=== PATIENT | female | born 1990 | race Caucasian/White ===

== ENCOUNTER 2018-02-22 07:54 | Emergency (ER) | payer MEDICAID, SELFPAY ==
[2018-02-22 07:55] VITALS: BP 117/67; PULSE 102; RESP 18; TEMP 37; O2SAT 98; BMI 19.9
--- NOTE | 2018-02-22 08:09 | ED.VISSUMM ---
- ER Visit Summary Date of Service: 02/22/18 Chief Complaint: [] Vomiting for a few days then headache History of Present Illness: The patient is a 27 F [] for the last day she has had vomiting this been relatively intractable. Her father and boyfriend have similar symptoms they are improving her vomiting persisted she has history of migraine headaches and the vomiting has caused her to develop her typical migraine headache. She had a prior extensive evaluation for the migraine headaches because on occasion when she has headache she has seizure she has had brain scans other studies she has no history of brain tumor or brain aneurysm she is on no meds for seizures. She has had no fever no cough no chest pain abdominal pain shortness of breath no urinary symptoms infected normal bowel bladder habits or paresthesias headache is typical of her migraines Physical Examination: [] Resting in the bed her vital signs are normal she is in no distress she speaking full sentences HEENT exams unremarkable pupils are equal round reactive conjunctiva clear nose and throat are normal neck is very supple lungs are clear heart tones are normal abdomen soft nontender neurologic exam is negative for all oriented ?3 skin is normal Test Results: [] Emergency Department Course and Treatment: [] Time she assures me this headache is her typical migraine this began with vomiting her abdomen soft nontender she was exposed to family members who have similar illness screening labs treatment Patient's laboratory studies are all unremarkable on reevaluation she is feeling better she has no symptoms whatsoever she is feeling fine she wants to go home, she has not been able to provide urine sample Explained all the test results to her the need for her to follow-up with her family doctors at the exact etiology of the vomiting is unclear she has no UTI symptoms she understands all the above and will return for change in symptomatology and follow with her doctors Treatment Plan: [] Disposition: [] Stable Impression: [] Vomiting resolved headache resolved This note was generated with [employer]ation software. It may contain incorrect words, spelling, and punctuation that were not noted in review of the chart prior to signing ED Disposition - Plan for ED Patient: Chief Complaint: Headache
[2018-02-22 08:17] LABS: Absolute Lymphocyte Count 1.37 X10^3/ul (0.83-4.51); Absolute Neutrophil Count 2.6 X10^3/uL (2.0-7.7); Basophil# 0.02 X10^3/uL; Basophil% 0.5 % (0-1); Eosinophil# 0.03 X10^3/uL; Eosinophils% 0.7 % (0-5); Hematocrit 38.3 % (37-47); Hemoglobin 12.3 g/dl (12.0-15.0); Lymphocyte # 1.37 X10^3/ul (4.0); Lymphocyte % 31.3 % (19-41); Mean Corp Hgb Conc 32.1 g/gl (32-36); Mean Corpuscular Hgb 26.5 pg (27.0-32.0); Mean Corpuscular Volume 82.5 fL (81-99); Mean Platelet Vol. 10.1 fl (6.2-12.0); Monocyte# 0.39 X10^3/uL; Monocyte% 8.9 % (0-10); Neutrophil # 2.56 X10^3/uL (2.7-7.7); Neutrophil % 58.4 % (47-70); Platelet Count 365 K/mm3 (150-450); RBC Distribution Width CV 17.8 % (11.6-14.6); RBC Distribution Width SD 53.5 fl (35.1-43.9); Red Blood Count 4.64 M/mm3 (4.2-5.4); White Blood Count 4.4 K/mm3 (4.4-11.0)
[2018-02-22] MEDS: DiphenhydrAMINE 50 MG/ML Syringe 25 MG IV (08:17)
[2018-02-22] MEDS: proCHLORPERazine 10 MG/2 ML Vial IV (08:17)
[2018-02-22] MEDS: 0.9% Normal Saline 1,000 ML 999 ML IV (08:17)
[2018-02-22 08:20] LABS: POSITIVE COUNT NO; POSITIVE DIFFERENTIAL NO; POSITIVE MORPHOLOGY NO
[2018-02-22] MEDS: Morphine 4 MG/ML Syringe IV (08:22)
[2018-02-22 08:31] LABS: AST(SGOT) 15 U/L (15-37); Alanine Aminotransfer ALT/SGPT 20 U/L (13-56); Albumin, Serum 4.3 g/dL (3.2-5.0); Alkaline Phosphatase 60 U/L (45-117); Anion Gap 8 (5-15); BUN 11 mg/dL (7-18); BUN/Creat Ratio 11.9 RATIO (10-20); Bilirubin, Direct 0.18 mg/dL (0.00-0.30); Chloride 102 mmol/L (98-107); Creatinine, Serum 0.92 mg/dL (0.55-1.02); EST Glomerular Filtration Rate 78 mL/min (>60); Est Glom Filt Rate - Afr Amer 94 mL/min (>60); Estimated Creatinine Clearance 89.58 ml/min; Glucose 75 mg/dL (74-106); Lipase 176 U/L (73-393); Potassium 3.7 mmol/L (3.5-5.1); Protein, Total 8.3 g/dL (6.4-8.2); Sodium Level 138 mmol/L (136-145)
[2018-02-22 08:40] LABS: Pregnancy, Serum, hCG Quali. NEGATIVE Negative (0-9 Nonpreg)
--- NOTE | 2018-02-22 09:52 | ED.DEP ---
ED Disposition - Plan for ED Patient: Chief Complaint: Headache Instructions: ED Headache Migraine, ED Diet Vomiting Diarrhea Prescriptions: Ondansetron [Zofran Odt] 4 mg PO Q8H PRN PRN #10 tab PRN Reason: Nausea Referrals: Anika Gustafson PA [Primary Care Provider] -
[2018-02-22 10:30] VITALS: PULSE 92; RESP 17; O2SAT 98
[2018-02-22 10:32] VITALS: PULSE 92; RESP 17; O2SAT 98
== END 2018-02-22 10:33 | disposition home or self-care (01) ==
PROVIDERS: Emergency Provider Emergency Medicine; Family Provider Physician Assistant Medical; PCP Physician Assistant Medical
DX: R11.10 Vomiting, unspecified (principal); R51 Headache
CPT/HCPCS: 80048; 80076; 83690; 84703; 85025; 96374; 96375; 99283; J7030; A4216

== ENCOUNTER 2018-06-25 12:41 | Emergency (ER) | payer MEDICAID, SELFPAY ==
[2018-06-25 12:42] VITALS: BP 146/83; PULSE 88; RESP 16; TEMP 36.2; O2SAT 100; BMI 20.6
--- NOTE | 2018-06-25 13:00 | ED.DCSUM_ITS ---
- ER Visit Summary Date of Service: 06/25/18 Chief Complaint: Abdominal pain History of Present Illness: The patient is a 28 F with history of seizures, anxiety, ovarian cysts. Patient developed lower abdominal pain yesterday. She was seen by her doctor who did a pelvic exam. She states she was told that they were able to palpate some swelling and she was sent to the ER due to concern for possible ovarian cyst. At the [facility] last evening they did not have ultrasound available so CT scan was performed. This revealed a left ovarian cyst. Patient presents with continued pain today. She states pain was so severe last evening she did vomit. She states her temperature was up to 102 last night. Physical Examination: Blood pressure is 146/83, temperature 97.2, heart rate 88 , respiratory rate 16, pulse ox 100% on room air. Head neck examination is unremarkable. Heart is regular rate and rhythm. Lung sounds are clear. Abdomen is soft with tenderness across the lower abdomen. There is no guarding or rebound. Hypoactive bowel sounds are noted. Test Results: CBC was normal white count hemoglobin 11.1. Chemistry studies normal. Urinalysis normal. test negative. Pelvic ultrasound her tach reveals a 2.7 x 2.0 cm left ovarian cyst. Normal blood flow is noted to both ovaries. Emergency Department Course and Treatment: Patient was given morphine, Zofran, and IV fluids. On repeat evaluation she is resting comfortably. Patient has an allergy to Toradol, but will be encouraged to take anti-inflammatories as tolerated. She will be given prescription for [place]. She is to follow-up with her INTERNET SALES DIRECTOR next week. Treatment Plan: [] Disposition: Discharge Impression: Left ovarian cyst This note was generated with [employer] dictation software. It may contain incorrect words, spelling, and punctuation that were not noted in review of the chart prior to signing ED Disposition - Plan for ED Patient: Chief Complaint: Abd Pain Referrals: Anika Gustafson PA [Primary Care Provider] -
--- NOTE | 2018-06-25 13:13 | US_ITS ---
STUDY: ULTRASOUND OF THE FEMALE PELVIS - COMPLETE REASON FOR EXAM: Female, 28 years old. PELVIC PAIN COUPLE DAYS ESSURE COILS LMP: June 13, 2018 TECHNIQUE: Transvaginal TECHNICAL QUALITY: Adequate. COMPARISON: Prior CT report of the abdomen and pelvis September 07, 2017 was normal. FINDINGS: The uterus is anteverted and is tilted to the left side of the pelvis. The uterus measures 9.6 x 7.1 x 4.8 cm. There is minimal fluid in the endocervical canal. The endometrium measures 11.7 mm in thickness, and is heterogeneous (striated). There is no demonstrated endometrial mass. There is no demonstrated myometrial mass. The essure coils cannot be visualized transvaginally. CT exam may be helpful in this regard if indicated. The right ovary is visualized. The right ovary measures 4.3 x 2.6 x 1.9 cm. There is no right ovarian cyst or ovarian mass. There is no visualized right adnexal mass or complex lesion. There is normal arterial and normal venous vascularity. The left ovary is visualized. The left ovary measures 3.9 x 2.6 x 2.5 cm. Dominant follicle measures 2.7 x 2 x 2 cm. There is no visualized left adnexal mass or complex lesion. There is normal arterial and normal venous vascularity. There is no fluid in the cul-de-sac. Polycystic ovary disease: No. US/Transvaginal Non- IMPRESSION: Normal female pelvis. Dominant left ovarian follicle. Electronically Signed: Rossana Jensen MD at 17:26 EDT , Service support ,
[2018-06-25 14:01] LABS: Absolute Lymphocyte Count 1.16 X10^3/ul (0.83-4.51); Absolute Neutrophil Count 3.2 X10^3/uL (2.0-7.7); Basophil# 0.01 X10^3/uL; Basophil% 0.2 % (0-1); Eosinophil# 0.02 X10^3/uL; Eosinophils% 0.4 % (0-5); Hematocrit 35.3 % (37-47); Hemoglobin 11.1 g/dl (12.0-15.0); Lymphocyte # 1.16 X10^3/ul (4.0); Lymphocyte % 24.7 % (19-41); Mean Corp Hgb Conc 31.4 g/gl (32-36); Mean Corpuscular Hgb 26.8 pg (27.0-32.0); Mean Corpuscular Volume 85.3 fL (81-99); Mean Platelet Vol. 10.4 fl (6.2-12.0); Monocyte# 0.28 X10^3/uL; Neutrophil # 3.23 X10^3/uL (2.7-7.7); Neutrophil % 68.7 % (47-70); Platelet Count 301 K/mm3 (150-450); RBC Distribution Width CV 17.6 % (11.6-14.6); RBC Distribution Width SD 55.2 fl (35.1-43.9); Red Blood Count 4.14 M/mm3 (4.2-5.4); White Blood Count 4.7 K/mm3 (4.4-11.0)
[2018-06-25 14:02] LABS: POSITIVE COUNT NO; POSITIVE DIFFERENTIAL NO; POSITIVE MORPHOLOGY NO
[2018-06-25] MEDS: Ondansetron 4 MG/2 ML Vial IV (14:02)
[2018-06-25] MEDS: Morphine 2 MG/ML Syringe 4 MG IV (14:02)
[2018-06-25] MEDS: 0.9% Normal Saline 1,000 ML 150 ML IV (14:02)
[2018-06-25 14:06] LABS: Bacteria 0 SEEN /hpf (None Seen); Mucous, Urine 0 SEEN /hpf (<or=2+); Red Blood Cells-Urine 0 SEEN /hpf (0-5); White Blood Cells 0 SEEN /hpf (0-5)
[2018-06-25 14:15] LABS: Anion Gap 7 (5-15); BUN 10 mg/dL (7-18); BUN/Creat Ratio 13.7 RATIO (10-20); Calcium,Total 8.7 mg/dL (8.5-10.1); Chloride 107 mmol/L (98-107); Creatinine, Serum 0.73 mg/dL (0.55-1.02); EST Glomerular Filtration Rate 102 mL/min (>60); Est Glom Filt Rate - Afr Amer 123 mL/min (>60); Estimated Creatinine Clearance 115.68 ml/min; Glucose 105 mg/dL (74-106); Potassium 4.1 mmol/L (3.5-5.1); Sodium Level 139 mmol/L (136-145)
[2018-06-25 14:21] LABS: Color, Urine Yellow (Yellow); Glucose, Dipstick Normal (Normal); Ketone-Dipstick Negative (Negative); Leukocyte Esterase-Dipstick Negative /ul (Negative); Nitrite-Dipstick Negative (Negative); Occult Blood-Urine Negative /ul (Negative); Protein-Dipstick Negative (Negative); Urine Bilirubin Dipstick Negative (Negative); Urine Clarity Clear (Clear); Urine Urobilinogen Normal (Normal)
[2018-06-25 14:29] LABS: Internal QC Validated? YES +Cl - CLEAR BKGD; Pregnancy, Urine Negative Negative
[2018-06-25 14:42] VITALS: RESP 16
[2018-06-25 14:52] LABS: Squamous Epithelial Cells - UA 0-5 SEEN /hpf (5-10)
[2018-06-25] MEDS: Morphine 2 MG/ML Syringe IV (15:28)
[2018-06-25 16:00] VITALS: RESP 16
--- NOTE | 2018-06-25 17:09 | ED.DEP ---
ED Disposition - Plan for ED Patient: Disposition: Home or Assisted Living Chief Complaint: Abd Pain Instructions: ED Cyst Ovarian Prescriptions: Hydrocodone Bitart/Apap 5-325 [[place] 5MG-325MG] 1 tablet PO Q6H PRN PRN 3 Days #10 tablet PRN Reason: Pain Referrals: Anika Gustafson PA [Primary Care Provider] - Additional Instructions: Follow-up with STAFFING EXECUTIVE next week
--- NOTE | 2018-06-25 17:11 | DCINST.ED_ITS ---
ED Disposition - Plan for ED Patient: Disposition: Home or Assisted Living Chief Complaint: Abd Pain Instructions: ED Cyst Ovarian Prescriptions: Hydrocodone Bitart/Apap 5-325 [[place] 5MG-325MG] 1 tablet PO Q6H PRN PRN 3 Days # 10 tablet PRN Reason: Pain Referrals: Anika Gustafosn PA [Primary Care Provider] - Additional Instructions: Follow-up with ROOF SLATER next week
[2018-06-25 17:19] VITALS: BP 126/91; PULSE 97; RESP 16; O2SAT 100
--- NOTE | 2018-06-25 17:19 | ED.RN ---
REVIEWED D/C INSTRUCTIONS, FOLLOW UP CARE, PRESCRIPTION, AND S/S THAT WOULD WARRANT A RETURN TO THE ED WITH PT. PT VERBALIZED AN UNDERSTANDING AND DENIES FURTHER QUESTIONS FOR THIS RN. PT SKIN P/W/D, RESP EVEN AND UNLABORED, PT A&O X 3, NO DISTRESS NOTED. PT AMBULATED OUT OF ED, GAIT STEADY.
== END 2018-06-25 17:20 | disposition home or self-care (01) ==
PROVIDERS: Emergency Provider Emergency Medicine; Family Provider Physician Assistant Medical; PCP Physician Assistant Medical
DX: N83.202 Unspecified ovarian cyst, left side (principal); R50.9 Fever, unspecified; G40.909 Epilepsy, unspecified, not intractable, without status epilepticus; F41.9 Anxiety disorder, unspecified; Z90.49 Acquired absence of other specified parts of digestive tract; Z79.899 Other long term (current) drug therapy
CPT/HCPCS: 76830; 80048; 81001; 81025; 85025; 96361; 96374; 96375; 96376; 99285; J7030; J7040; A4216; J2405

== ENCOUNTER 2018-06-27 10:41 | Emergency (ER) | payer MEDICAID, SELFPAY ==
[2018-06-27 10:42] VITALS: BP 136/66; PULSE 92; RESP 17; TEMP 37; O2SAT 97; BMI 20.2
--- NOTE | 2018-06-27 10:52 | ED.DCSUM_ITS ---
- ER Visit Summary Date of Service: 06/27/18 Chief Complaint: Flank pain, dysuria, hematuria History of Present Illness: The patient is a 28 F presents to the emergency department left-sided flank pain. Patient was actually here 2 days ago. She was diagnosed with an ovarian cyst. States her pain totally resolved. She states over the past 24 hours, she has had worsening, intermittent pain that is been in her left flank. States last night, she began have some hematuria and dysuria. She also admits to some low-grade fever and chills. She was mildly nauseated but denies any vomiting. The pain does not radiate to her abdomen. She has had one prior kidney stone in the past. She has never required lithotripsy or stenting. The patient is otherwise healthy. Physical Examination: Vital signs reviewed General: Well-nourished, well-developed Head: Normocephalic, atraumatic Eyes: Pupils equal and reactive, extraocular muscles intact Neck, supple, no lymphadenopathy Heart: Regular rate and rhythm Respiratory: No distress, clear bilaterally Abdomen: Soft, nontender, nondistended, no peritoneal signs Back: Mild left CVA tenderness Extremities: Nontender, no edema, no cords Skin: Normal color no rash Neuro: Alert and oriented, no focal or lateralizing deficits Test Results: [] Emergency Department Course and Treatment: The patient presents with left-sided flank pain and fevers at home. Her abdomen is soft and nontender. IV was established. She was given IV fluids, analgesics, and antiemetics. She was totally pain-free. Screening labs are unremarkable. Urine does show evidence of infection. Urine culture was added. The patient is given IV Rocephin will be kept on Bactrim as an outpatient. At this time, I do feel that she is safe for outpatient therapy. She has had resolution of her pain. She has no evidence of sepsis. She is well-appearing and has no other comorbidities. The patient be discharged home. Treatment Plan: [] Disposition: Discharge Impression: Pyelonephritis This note was generated with [employer] dictation software. It may contain incorrect words, spelling, and punctuation that were not noted in review of the chart prior to signing ED Disposition - Plan for ED Patient: Chief Complaint: Flank Pain Instructions: ED Kidney Infec Female Prescriptions: Smz/Tmp Ds [Bactrim Ds] 1 tab PO BID #14 tab Referrals: Anika Gustafson PA [Primary Care Provider] -
[2018-06-27] MEDS: 0.9% Normal Saline 1,000 ML 1000 ML IV (11:01)
[2018-06-27] MEDS: Ondansetron 4 MG/2 ML Vial IV (11:01)
[2018-06-27] MEDS: Morphine 4 MG/ML Syringe IV (11:01)
[2018-06-27 11:05] LABS: Mucous, Urine 0 SEEN /hpf (<or=2+); Red Blood Cells-Urine 0 SEEN /hpf (0-5)
[2018-06-27 11:21] LABS: Anion Gap 7 (5-15); BUN 8 mg/dL (7-18); BUN/Creat Ratio 10.5 RATIO (10-20); Calcium,Total 8.6 mg/dL (8.5-10.1); Chloride 106 mmol/L (98-107); Creatinine, Serum 0.76 mg/dL (0.55-1.02); EST Glomerular Filtration Rate 97 mL/min (>60); Est Glom Filt Rate - Afr Amer 117 mL/min (>60); Estimated Creatinine Clearance 108.83 ml/min; Glucose 85 mg/dL (74-106); Potassium 3.9 mmol/L (3.5-5.1); Sodium Level 140 mmol/L (136-145)
[2018-06-27 11:27] LABS: Absolute Lymphocyte Count 1.34 X10^3/ul (0.83-4.51); Absolute Neutrophil Count 4.6 X10^3/uL (2.0-7.7); Basophil# 0.02 X10^3/uL; Basophil% 0.3 % (0-1); Eosinophil# 0.05 X10^3/uL; Eosinophils% 0.8 % (0-5); Hematocrit 37.7 % (37-47); Hemoglobin 12.2 g/dl (12.0-15.0); Lymphocyte # 1.34 X10^3/ul (4.0); Lymphocyte % 20.5 % (19-41); Mean Corp Hgb Conc 32.4 g/gl (32-36); Mean Corpuscular Hgb 27.5 pg (27.0-32.0); Mean Corpuscular Volume 84.9 fL (81-99); Mean Platelet Vol. 10.8 fl (6.2-12.0); Monocyte# 0.51 X10^3/uL; Monocyte% 7.8 % (0-10); Neutrophil # 4.61 X10^3/uL (2.7-7.7); Neutrophil % 70.4 % (47-70); Platelet Count 298 K/mm3 (150-450); RBC Distribution Width CV 17.4 % (11.6-14.6); Red Blood Count 4.44 M/mm3 (4.2-5.4); White Blood Count 6.5 K/mm3 (4.4-11.0)
[2018-06-27 11:28] LABS: POSITIVE COUNT NO; POSITIVE DIFFERENTIAL NO; POSITIVE MORPHOLOGY NO
[2018-06-27 11:33] LABS: Color, Urine Amber (Yellow); Glucose, Dipstick Normal (Normal); Ketone-Dipstick Negative (Negative); Leukocyte Esterase-Dipstick 500 /ul (Negative); Nitrite-Dipstick Positive (Negative); Occult Blood-Urine 10 /ul (Negative); Protein-Dipstick 15 mg/dl (Negative); Urine Clarity Clear (Clear); Urine Urobilinogen 8 mg/dl (Normal)
[2018-06-27 11:39] LABS: Urine Bilirubin Dipstick 6 mg/dL (Negative)
[2018-06-27 11:40] LABS: Bacteria 1+ /hpf (None Seen); Internal QC Validated? YES +Cl - CLEAR BKGD; Pregnancy, Urine Negative Negative; Squamous Epithelial Cells - UA 5-10 SEEN /hpf (5-10); White Blood Cells 25-50 SEEN /hpf (0-5)
[2018-06-27] MEDS: Ceftriaxone 1 GM/50 ML BAG IV (11:55)
[2018-06-27 12:39] VITALS: BP 126/76; PULSE 89; RESP 18; O2SAT 95
== END 2018-06-27 12:40 | disposition home or self-care (01) ==
LOC: ED 11:13
PROVIDERS: Emergency Provider Emergency Medicine; Family Provider Physician Assistant Medical; PCP Physician Assistant Medical
DX: N12 Tubulo-interstitial nephritis, not specified as acute or chronic (principal); Z87.442 Personal history of urinary calculi
CPT/HCPCS: 80048; 81001; 81025; 85025; 87086; 87088; 96361; 96365; 96374; 96375; 99285; J7030; A4216; J2405

== ENCOUNTER 2018-06-29 12:02 | Emergency (ER) | payer MEDICAID, SELFPAY ==
[2018-06-29 12:03] VITALS: BP 140/95; PULSE 74; RESP 16; TEMP 36.5; O2SAT 98; BMI 19.9
[2018-06-29] MEDS: 0.9% Normal Saline 1,000 ML 1000 ML IV (12:27)
[2018-06-29] MEDS: Ondansetron 4 MG/2 ML Vial IV (12:27)
[2018-06-29] MEDS: Morphine 4 MG/ML Syringe IV ×2 (12:27→14:33)
[2018-06-29 12:32] LABS: Absolute Lymphocyte Count 1.59 X10^3/ul (0.83-4.51); Absolute Neutrophil Count 2.6 X10^3/uL (2.0-7.7); Basophil# 0.01 X10^3/uL; Basophil% 0.2 % (0-1); Eosinophil# 0.04 X10^3/uL; Eosinophils% 0.9 % (0-5); Hematocrit 38.9 % (37-47); Hemoglobin 12.1 g/dl (12.0-15.0); Lymphocyte # 1.59 X10^3/ul (4.0); Lymphocyte % 34.5 % (19-41); Mean Corp Hgb Conc 31.1 g/gl (32-36); Mean Corpuscular Hgb 26.6 pg (27.0-32.0); Mean Corpuscular Volume 85.5 fL (81-99); Mean Platelet Vol. 9.9 fl (6.2-12.0); Monocyte# 0.36 X10^3/uL; Monocyte% 7.8 % (0-10); Neutrophil # 2.61 X10^3/uL (2.7-7.7); Neutrophil % 56.6 % (47-70); Platelet Count 280 K/mm3 (150-450); RBC Distribution Width CV 17.7 % (11.6-14.6); RBC Distribution Width SD 55.8 fl (35.1-43.9); Red Blood Count 4.55 M/mm3 (4.2-5.4); White Blood Count 4.6 K/mm3 (4.4-11.0)
[2018-06-29 12:33] LABS: POSITIVE COUNT NO; POSITIVE DIFFERENTIAL NO; POSITIVE MORPHOLOGY NO
[2018-06-29 12:35] LABS: Mucous, Urine 0 SEEN /hpf (<or=2+); Red Blood Cells-Urine 0 SEEN /hpf (0-5)
[2018-06-29 12:36] LABS: Color, Urine Amber (Yellow); Glucose, Dipstick Normal (Normal); Ketone-Dipstick Negative (Negative); Leukocyte Esterase-Dipstick 25 /ul (Negative); Nitrite-Dipstick Positive (Negative); Occult Blood-Urine Negative /ul (Negative); Protein-Dipstick Negative (Negative); Urine Clarity Sl. Cloudy (Clear); Urine Urobilinogen 4 mg/dl (Normal)
[2018-06-29 12:37] LABS: Urine Bilirubin Dipstick 3 mg/dL (Negative)
[2018-06-29 12:43] LABS: Bacteria 1+ /hpf (None Seen); Squamous Epithelial Cells - UA 5-10 SEEN /hpf (5-10); White Blood Cells 0-5 SEEN /hpf (0-5)
[2018-06-29 12:47] LABS: ALB/GLOB Ratio 1.3 RATIO (0.9-2.4); AST(SGOT) 20 U/L (15-37); Alanine Aminotransfer ALT/SGPT 22 U/L (13-56); Albumin, Serum 4.4 g/dL (3.2-5.0); Alkaline Phosphatase 50 U/L (45-117); Anion Gap 8 (5-15); BUN 9 mg/dL (7-18); BUN/Creat Ratio 11.5 RATIO (10-20); Calcium,Total 9.2 mg/dL (8.5-10.1); Chloride 102 mmol/L (98-107); Creatinine, Serum 0.79 mg/dL (0.55-1.02); EST Glomerular Filtration Rate 93 mL/min (>60); Est Glom Filt Rate - Afr Amer 113 mL/min (>60); Globulin 3.4 g/dL (2.2-4.2); Glucose 83 mg/dL (74-106); Potassium 3.6 mmol/L (3.5-5.1); Protein, Total 7.8 g/dL (6.4-8.2); Sodium Level 139 mmol/L (136-145)
--- NOTE | 2018-06-29 12:47 | CT_ITS ---
STUDY: CT ABDOMEN AND PELVIS WITHOUT CONTRAST REASON FOR EXAM: Female, 28 years old. Pelvic pain. Recent diagnosis of pyelonephritis. RADIATION DOSAGE (If Supplied By Facility): CTDIvol = ( 6.10 ) mGy, DLP = ( 333.82 ) mGycm TECHNIQUE: Transaxial images were obtained from the dome of the diaphragm to the symphysis pubis without oral contrast, and without intravenous contrast. Sagittal and coronal images were reconstructed. Individualized dose optimization techniques were used for this CT. COMPARISON: Comparison is made with prior examination dated September 07, 2017. FINDINGS: The visualized lung bases are unremarkable. The visualized portions of the heart are within normal limits. Normal liver. Normal gallbladder and extrahepatic biliary system. Normal spleen. Normal pancreas. Normal bilateral adrenal glands. Normal right kidney. Normal left kidney. There is a small hiatal hernia. Normal small intestine. Normal colon. There are surgical clips in the region of the appendix consistent with a prior appendectomy. Normal abdominal aorta. Normal inferior vena cava. Normal retroperitoneum. Normal urinary bladder. ESSURE device seen in both fallopian tubes. There is a 3.4 cm x 5.5 cm x 5.2 cm cyst in the left adnexa. Follicles are seen in the right ovary. Normal abdominal wall. Normal osseous structures. CT/Abdomen/Pelvis without Cont IMPRESSION: Left ovarian cyst. Electronically Signed: Yasir Nelson MD at 13:54 EDT Tel [phone], Service support ,
--- NOTE | 2018-06-29 13:45 | ED.RN ---
PT REQUESTING PAIN AND NAUSEA MEDICATION, DR. SHEA AWARE.
--- NOTE | 2018-06-29 13:52 | ED.VISSUMM ---
- ER Visit Summary Date of Service: 06/29/18 Chief Complaint: Left lower quadrant pain and flank pain History of Present Illness: The patient is a 28 F presents to the emergency department with left lower quadrant pain and flank pain. The patient was seen here about 4 days ago. At that time, she was diagnosed with likely ovarian cyst. She came back 2 days later with now flank pain and dysuria. Actually evaluated patient at that time. Her urine did show evidence of infection. I did treat her clinically for pyelonephritis. She has been on Bactrim and states that she still had pain. She states it seems like it is more in her lower pelvis. She denies any fevers but has felt like she has had chills. She has had nausea without vomiting. She states she has been taking anti-inflammatories with little improvement. Physical Examination: Vital signs reviewed General: Well-nourished, well-developed Head: Normocephalic, atraumatic Eyes: Pupils equal and reactive, extraocular muscles intact Neck, supple, no lymphadenopathy Heart: Regular rate and rhythm Respiratory: No distress, clear bilaterally Abdomen: Soft, nontender, nondistended, no peritoneal signs Back: Nontender Extremities: Nontender, no edema, no cords Skin: Normal color no rash Neuro: Alert and oriented, no focal or lateralizing deficits Test Results: [] Emergency Department Course and Treatment: The patient's pain is difficult to reproduce on exam. She has very minimal tenderness in her left lower quadrant. I did review her prior ultrasound and CT. She was given analgesics and had improvement of her pain. Labs are unremarkable. She still is nitrite positive urine, but her culture from 2 days ago just showed mixed organisms. I do feel that continuing with her antibiotic regimen is appropriate at this time. The patient did have return of pain. She was sent for a CT of her abdomen and pelvis. I mostly wanted to rule out retained stone with infection. CT does demonstrate a 3 x 5 cm left ovarian cyst. I do feel this is likely the cause the patient's pain. Her pain is not out of proportion. I do not feel that she is torsed. I do feel that she is going to need urgent outpatient METER MAKER follow-up. She does not have an middle school director in the area, she will referred to Dr. Mckeon. She will be continued on analgesics and antiemetics. I did quitline counselor her on concerning symptoms of torsion and reasons to return. At this time, due to the patient is safe for discharge. Treatment Plan: [] Disposition: Discharge Impression: Left ovarian cyst with persistent pain This note was generated with [employer] dictation software. It may contain incorrect words, spelling, and punctuation that were not noted in review of the chart prior to signing ED Disposition - Plan for ED Patient: Chief Complaint: Abd Pain Instructions: ED Cyst Ovarian Prescriptions: Hydrocodone Bitart/Apap 5-325 [[place] 5MG-325MG] 1 tab PO Q6H PRN PRN 3 Days #10 tab PRN Reason: Pain Ondansetron [Zofran Odt] 4 mg PO Q8H PRN PRN #10 tab PRN Reason: Nausea Referrals: Lashell Mckeon MD [STAFF PHYSICIAN] - As soon as possible
[2018-06-29 14:04] VITALS: RESP 16
[2018-06-29] MEDS: proMETHazine 25 MG/ML Syringe 6.25 MG IV (14:32)
[2018-06-29 14:53] VITALS: BP 112/73; PULSE 81; RESP 16; O2SAT 98
--- NOTE | 2018-06-29 14:54 | ED.RN ---
REVIEWED D/C INSTRUCTIONS, FOLLOW UP CARE, PRESCRIPTIONS, AND S/S THAT WOULD WARRANT A RETURN TO THE ED WITH PT. PT VERBALIZED AN UNDERSTANDING AND DENIES FURTHER QUESTIONS FOR THIS RN. PT SKIN P/W/D, RESP EVEN AND UNLABORED, PT A&O X 3, NO DISTRESS NOTED. PT AMBULATED OUT OF ED, GAIT STEADY.
== END 2018-06-29 14:55 | disposition home or self-care (01) ==
LOC: ED 12:32
PROVIDERS: Emergency Provider Emergency Medicine; Family Provider Physician Assistant Medical; PCP Physician Assistant Medical
DX: N83.202 Unspecified ovarian cyst, left side (principal)
CPT/HCPCS: 74176; 80053; 81001; 85025; 99283; J7030; A4216; J2405

== ENCOUNTER 2018-06-30 20:14 | Observation (INO) | payer MEDICAID, SELFPAY ==
[2018-06-30 20:15] VITALS: BP 117/86; PULSE 76; RESP 18; TEMP 37.2; O2SAT 98; BMI 20.6
--- NOTE | 2018-06-30 22:37 | ED.VISSUMM ---
- ER Visit Summary Date of Service: 06/30/18 Chief Complaint: Pelvic pain History of Present Illness: The patient is a 28 F with left-sided pelvic pain. This is the patient's third visit. She was diagnosed with a kidney infection and also a large ovarian cyst on the left. She was referred to QUALITY ASSURANCE SPECIALIST. She called today because she was having severe pain, and she was referred to the emergency department. Patient denies any new interval symptoms. Physical Examination: Afebrile and vital signs unremarkable. Heart regular. No respiratory distress. Left pelvic region tender to palpation. No guarding or rebound. Skin appears normal. Test Results: Repeat CBC pending. Emergency Department Course and Treatment: Patient treated with morphine and Zofran. She was discussed with Dr. Alonzo and will be admitted for intractable pain. Treatment Plan: As above Disposition: Admission Impression: 1. Left pelvic pain This note was generated with [employer] dictation software. It may contain incorrect words, spelling, and punctuation that were not noted in review of the chart prior to signing ED Disposition - Plan for ED Patient: Chief Complaint: Female C/O
[2018-06-30 22:49] VITALS: BP 119/86; PULSE 76; RESP 18; O2SAT 98
[2018-06-30] MEDS: Morphine 4 MG/ML Syringe IV (22:54)
[2018-06-30] MEDS: Ondansetron 4 MG/2 ML Vial IV (22:54)
[2018-06-30 23:13] LABS: Absolute Lymphocyte Count 2.28 X10^3/ul (0.83-4.51); Absolute Neutrophil Count 2.1 X10^3/uL (2.0-7.7); Basophil# 0.02 X10^3/uL; Basophil% 0.4 % (0-1); Eosinophil# 0.07 X10^3/uL; Eosinophils% 1.5 % (0-5); Hematocrit 38.9 % (37-47); Lymphocyte # 2.28 X10^3/ul (4.0); Lymphocyte % 47.5 % (19-41); Mean Corp Hgb Conc 30.8 g/gl (32-36); Mean Corpuscular Hgb 26.5 pg (27.0-32.0); Mean Corpuscular Volume 86.1 fL (81-99); Monocyte# 0.29 X10^3/uL; Neutrophil # 2.14 X10^3/uL (2.7-7.7); Neutrophil % 44.6 % (47-70); POSITIVE COUNT NO; POSITIVE DIFFERENTIAL NO; POSITIVE MORPHOLOGY NO; Platelet Count 246 K/mm3 (150-450); RBC Distribution Width CV 17.5 % (11.6-14.6); RBC Distribution Width SD 55.1 fl (35.1-43.9); Red Blood Count 4.52 M/mm3 (4.2-5.4); White Blood Count 4.8 K/mm3 (4.4-11.0)
[2018-06-30 23:30] VITALS: BMI 20.1
[2018-06-30 23:40] VITALS: BP 120/82; PULSE 65; RESP 16; TEMP 37.1; O2SAT 100
[2018-06-30] MEDS: Acetaminophen 500 MG Tablet PO (23:53)
[2018-06-30] MEDS: Morphine 2 MG/ML Syringe IV (23:54)
[2018-07-01] VITALS (10 sets, daily range): BP systolic 101–138; BP diastolic 60–91; PULSE 64–83; RESP 16–18; TEMP 36.3–37.6; O2SAT 96–100; BMI 20.1
[2018-07-01] MEDS: Zolpidem Tartrate 5 MG Tablet PO (00:25)
[2018-07-01] MEDS: Morphine 2 MG/ML Syringe IV ×7 (02:11→23:06)
[2018-07-01] MEDS: 0.9% NaCl Peripheral Flush Adult/Peds IV ×3 (02:11→08:27)
[2018-07-01 06:51] LABS: Absolute Lymphocyte Count 1.99 X10^3/ul (0.83-4.51); Absolute Neutrophil Count 1.7 X10^3/uL (2.0-7.7); Basophil# 0.01 X10^3/uL; Basophil% 0.3 % (0-1); Eosinophil# 0.09 X10^3/uL; Eosinophils% 2.3 % (0-5); Hematocrit 36.4 % (37-47); Hemoglobin 11.3 g/dl (12.0-15.0); Lymphocyte # 1.99 X10^3/ul (4.0); Lymphocyte % 49.9 % (19-41); Mean Corpuscular Volume 86.9 fL (81-99); Mean Platelet Vol. 10.2 fl (6.2-12.0); Monocyte# 0.24 X10^3/uL; Neutrophil # 1.66 X10^3/uL (2.7-7.7); Neutrophil % 41.5 % (47-70); Platelet Count 239 K/mm3 (150-450); RBC Distribution Width CV 17.5 % (11.6-14.6); RBC Distribution Width SD 55.8 fl (35.1-43.9); Red Blood Count 4.19 M/mm3 (4.2-5.4)
[2018-07-01 07:09] LABS: POSITIVE COUNT NO; POSITIVE DIFFERENTIAL NO; POSITIVE MORPHOLOGY NO
[2018-07-01 07:10] LABS: Anion Gap 6 (5-15); BUN 9 mg/dL (7-18); BUN/Creat Ratio 12.6 RATIO (10-20); Calcium,Total 8.2 mg/dL (8.5-10.1); Chloride 103 mmol/L (98-107); Creatinine, Serum 0.72 mg/dL (0.55-1.02); EST Glomerular Filtration Rate 104 mL/min (>60); Est Glom Filt Rate - Afr Amer 126 mL/min (>60); Estimated Creatinine Clearance 114.46 ml/min; Glucose 108 mg/dL (74-106); Potassium 3.6 mmol/L (3.5-5.1); Sodium Level 140 mmol/L (136-145)
--- NOTE | 2018-07-01 07:55 | PCM.HP.STD ---
Problem List (1) LLQ abdominal pain Status: Acute (2) Left ovarian cyst Status: Acute History of Present Illness Date of Admission: 06/30/18 - LLQ pain, ovarian cyst 28 yo [id number] female presents every other day in last week to [facility] ED with CC of L sided pain. States h/o ovarian cysts in past. LMP was approximately two weeks ago. She has had some N/V also. Pain intermittent, sharp, crampy and better with lying still and with pain meds. She has also had some hematuria, dysuria and dx with presumed UTI during course of ER evaluations in last week. Over the course of her recent evaluations: pelvic ultrasound and CT two days later show interval enlargement of an ovarian cyst on the L ovary, last measured at 3.4 x 5.5 x 5.2 cm 06/29/18. She prefers to have the L ovary removed as this has been a chronic problem to her. She has had bilateral ESSURE placement and on studies, ESSURE coils in correct location. States she has had issues since ESSURE placed. Prior Mirena IUD twice removed by laparoscopies due to perforation of the uterus with each. Past Medical History Medical History: Medical History (Last Updated 07/01/18 @ 08:04 by Kathryn Alonzo MD) Kidney stone N20.0 Seizure disorder G40.909 Allergies metoclopramide [From Reglan] Allergy (Verified 06/30/18 20:17) Other ketorolac [From Toradol] Adverse Reaction (Verified 06/30/18 20:17) Rash tramadol [From Ultram] Adverse Reaction (Verified 06/30/18 20:17) Other Home Medications: Ambulatory Orders Medication Instructions Recorded Methylphenidate HCl [Concerta] 54 mg PO DAILY 07/13/17 Clonazepam [Klonopin] 0.5 mg PO TID PRN PRN 02/22/18 Venlafaxine XR [Effexor Xr] 37.5 mg PO DAILY 06/27/18 Hydrocodone Bitart/Apap 5-325 1 tab PO Q6H PRN PRN 3 Days #10 tab 06/29/18 [[place] 5MG-325MG] Nitrofurantoin Macrocrystals 100 mg PO Q12 06/29/18 [Macrobid] Ondansetron [Zofran Odt] 4 mg PO Q8H PRN PRN #10 tab 06/29/18 Surgical History: appendectomy, cholecystectomy, - - Two prior C section deliveries for preeclampsia and unfavorable cervix. Two laparoscopies for removal of Mirena IUD. ESSURE surgical sterilization. Psychiatric History: Anxiety HOME COORDINATOR History: ovarian cysts Smoking Status: Never smoker Alcohol: None Drugs: None - *Family History Maternal History Items: No pertinent history Review of Systems Constitutional: Denies: Anorexia Eyes: Denies: Blurred vision Gastrointestinal: Reports: Abdominal Pain Genitourinary: Denies: Dysuria Gynecological: Denies: Vaginal bleeding Neurological: Denies: Blurred vision, Double vision Psychiatric: Reports: Anxiety VTE Information - Inpt Only VTE Present on Admission: No VTE Pharm Prophylaxis ordered?: No Patient Problems: Active and Suspected Problems LLQ abdominal pain (Acute) Left ovarian cyst (Acute) Objective: Thin female NAD. Lying on L side, resting in bed at initial encounter - Physical Exam General: Alert, Oriented x3, Cooperative, No apparent distress HEENT: Atraumatic Oral: Moist Mucosa Neck: Supple, No JVD Lungs: Clear to auscultation Cardiovascular: Regular rate, Regular Rhythm Abdomen: Bowel Sounds Present, Soft - No rebound, no guarding. + tender to palpation in LLQ Extremities: No clubbing, No cyanosis, No edema Neurological: Cranial nerves II-XII grossly intact Psych/Mental Status: Normal Affect Vital Signs Temp Pulse Resp BP Pulse Ox 97.8 F 76 16 101/60 97 07/01/18 05:00 07/01/18 05:00 07/01/18 05:00 07/01/18 05:00 07/01/18 05:00 Oxygen Delivery Method Room Air Weight: 61.774 kg Body Mass Index (BMI) 20.1 Intake and Output for Last 24 Hours 06/29/18 06/30/18 07/01/18 23:59 23:59 23:59 Intake Total 500 / 500 Balance 500 / 500 Laboratory Tests Past 24 Hrs 06/30/18 07/01/18 07/01/18 22:50 06:15 06:15 WBC 4.8 4.0 L RBC 4.52 4.19 L Hgb 12.0 11.3 L Hct 38.9 36.4 L MCV 86.1 86.9 MCH 26.5 L 27.0 MCHC 30.8 L 31.0 L RDW 17.5 H 17.5 H RDW Differential 55.1 H 55.8 H Plt Count 246 239 MPV 10.0 10.2 Immature Gran % (Auto) 0.000 0.000 Neut % (Auto) 44.6 L 41.5 L Lymph % (Auto) 47.5 H 49.9 H [place] % (Auto) 6.0 6.0 Eos % (Auto) 1.5 2.3 Baso % (Auto) 0.4 0.3 Absolute Neuts (auto) 2.1 1.7 L Absolute Lymphs (auto) 2.28 1.99 Total Counted Not Reportable Not Reportable Sodium 140 Potassium 3.6 Chloride 103 Carbon Dioxide 31.0 Anion Gap 6 BUN 9 Creatinine 0.72 Estim Creat Clear Calc 114.46 Est GFR (MDRD) Af Amer 126 Est GFR (MDRD) Non-Af 104 BUN/Creatinine Ratio 12.6 Glucose 108 H Calcium 8.2 L Assessment/Plan All Active Problems LLQ abdominal pain (Acute) Left ovarian cyst (Acute) #1 LLQ pain, L ovarian cyst Timing of cyst c/w [place] , possible ovarian torsion given pain. She states long h/o ovarian cysts. Reviewed options for management including, expectant management vs ovarian cystectomy vs oophorectomy prefers surgical approach and L oophorectomy. -- R,B,A reviewed. Discussed anticipated surgical procedure and postop recovery including activity restrictions. All questions answered to patient's satisfaction and consents signed. Plan for surgery today as first avail this afternoon. NPO for now. IV fluids. #2 ESSURE and chronic pain. Asking if these could be removed at time of surgery today. Advised removal of ESSURE best done as hysterectomy. To attempt to core out the ESSURE devices would potentially seed the pelvis and abdomen with shards of metal , which could result in further pain / complications. Declines hysterectomy for now. Plan for L/S L oophorectomy and partial L salpingectomy to address current LLQ pain, L ovarian cyst. Possible torsion.
--- NOTE | 2018-07-01 08:01 | HP.PCM_ITS ---
Problem List (1) LLQ abdominal pain Status: Acute (2) Left ovarian cyst Status: Acute History of Present Illness Date of Admission: 06/30/18 - LLQ pain, ovarian cyst 28 yo [id number] female presents every other day in last week to [facility] ED with CC of L sided pain. States h/o ovarian cysts in past. LMP was approximately two weeks ago. She has had some N/V also. Pain intermittent, sharp, crampy and better with lying still and with pain meds. She has also had some hematuria, dysuria and dx with presumed UTI during course of ER evaluations in last week. Over the course of her recent evaluations: pelvic ultrasound and CT two days later show interval enlargement of an ovarian cyst on the L ovary, last measured at 3.4 x 5.5 x 5.2 cm 06/29/18. She prefers to have the L ovary removed as this has been a chronic problem to her. She has had bilateral ESSURE placement and on studies, ESSURE coils in correct location. States she has had issues since ESSURE placed. Prior Mirena IUD twice removed by laparoscopies due to perforation of the uterus with each. Past Medical History Medical History: Medical History (Last Updated 07/01/18 @ 08:04 by Kathryn Alonzo MD) Kidney stone N20.0 Seizure disorder G40.909 Allergies metoclopramide [From Reglan] Allergy (Verified 06/30/18 20:17) Other ketorolac [From Toradol] Adverse Reaction (Verified 06/30/18 20:17) Rash tramadol [From Ultram] Adverse Reaction (Verified 06/30/18 20:17) Other Home Medications: Ambulatory Orders Medication Instructions Recorded Methylphenidate HCl [Concerta] 54 mg PO DAILY 07/13/17 Clonazepam [Klonopin] 0.5 mg PO TID PRN PRN 02/22/18 Venlafaxine XR [Effexor Xr] 37.5 mg PO DAILY 06/27/18 Hydrocodone Bitart/Apap 5-325 1 tab PO Q6H PRN PRN 3 Days #10 tab 06/29/18 [[place] 5MG-325MG] Nitrofurantoin Macrocrystals 100 mg PO Q12 06/29/18 [Macrobid] Ondansetron [Zofran Odt] 4 mg PO Q8H PRN PRN #10 tab 06/29/18 Surgical History: appendectomy, cholecystectomy, - - Two prior C section deliveries for preeclampsia and unfavorable cervix. Two laparoscopies for removal of Mirena IUD. ESSURE surgical sterilization. 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[employer]IC History: ovarian cysts Smoking Status: Never smoker Alcohol: None Drugs: None - *Family History Maternal History Items: No pertinent history Review of Systems Constitutional: Denies: Anorexia Eyes: Denies: Blurred vision Gastrointestinal: Reports: Abdominal Pain Genitourinary: Denies: Dysuria Gynecological: Denies: Vaginal bleeding Neurological: Denies: Blurred vision, Double vision Psychiatric: Reports: Anxiety VTE Information - Inpt Only VTE Present on Admission: No VTE Pharm Prophylaxis ordered?: No Patient Problems: Active and Suspected Problems LLQ abdominal pain (Acute) Left ovarian cyst (Acute) Objective: Thin female NAD. Lying on L side, resting in bed at initial encounter - Physical Exam General: Alert, Oriented x3, Cooperative, No apparent distress HEENT: Atraumatic Oral: Moist Mucosa Neck: Supple, No JVD Lungs: Clear to auscultation Cardiovascular: Regular rate, Regular Rhythm Abdomen: Bowel Sounds Present, Soft - No rebound, no guarding. + tender to palpation in LLQ Extremities: No clubbing, No cyanosis, No edema Neurological: Cranial nerves II-XII grossly intact Psych/Mental Status: Normal Affect Vital Signs Temp Pulse Resp BP Pulse Ox 97.8 F 76 16 101/60 97 07/01/18 05:00 07/01/18 05:00 07/01/18 05:00 07/01/18 05:00 07/01/18 05:00 Oxygen Delivery Method Room Air Weight: 61.774 kg Body Mass Index (BMI) 20.1 Intake and Output for Last 24 Hours 06/29/18 06/30/18 07/01/18 23:59 23:59 23:59 Intake Total 500 / 500 Balance 500 / 500 Laboratory Tests Past 24 Hrs 06/30/18 07/01/18 07/01/18 22:50 06:15 06:15 WBC 4.8 4.0 L RBC 4.52 4.19 L Hgb 12.0 11.3 L Hct 38.9 36.4 L MCV 86.1 86.9 MCH 26.5 L 27.0 MCHC 30.8 L 31.0 L RDW 17.5 H 17.5 H RDW Differential 55.1 H 55.8 H Plt Count 246 239 MPV 10.0 10.2 Immature Gran % (Auto) 0.000 0.000 Neut % (Auto) 44.6 L 41.5 L Lymph % (Auto) 47.5 H 49.9 H Appling % (Auto) 6.0 6.0 Eos % (Auto) 1.5 2.3 Baso % (Auto) 0.4 0.3 Absolute Neuts (auto) 2.1 1.7 L Absolute Lymphs (auto) 2.28 1.99 Total Counted Not Reportable Not Reportable Sodium 140 Potassium 3.6 Chloride 103 Carbon Dioxide 31.0 Anion Gap 6 BUN 9 Creatinine 0.72 Estim Creat Clear Calc 114.46 Est GFR (MDRD) Af Amer 126 Est GFR (MDRD) Non-Af 104 BUN/Creatinine Ratio 12.6 Glucose 108 H Calcium 8.2 L Assessment/Plan All Active Problems LLQ abdominal pain (Acute) Left ovarian cyst (Acute) #1 LLQ pain, L ovarian cyst Timing of cyst c/w lake , possible ovarian torsion given pain. She states long h/o ovarian cysts. Reviewed options for management including, expectant management vs ovarian cystectomy vs oophorectomy prefers surgical approach and L oophorectomy. -- R,B,A reviewed. Discussed anticipated surgical procedure and postop recovery including activity restrictions. All questions answered to patient's satisfaction and consents signed. Plan for surgery today as first avail this afternoon. NPO for now. IV fluids. #2 ESSURE and chronic pain. Asking if these could be removed at time of surgery today. Advised removal of ESSURE best done as hysterectomy. To attempt to core out the ESSURE devices would potentially seed the pelvis and abdomen with shards of metal , which could result in further pain / complications. Declines hysterectomy for now. Plan for L/S L oophorectomy and partial L salpingectomy to address current LLQ pain, L ovarian cyst. Possible torsion.
[2018-07-01] MEDS: Lactated Ringers 1,000 ML 125 ML IV ×3 (08:36→21:08)
[2018-07-01] MEDS: clonazePAM 0.5 MG Tablet PO ×2 (08:39→17:13)
[2018-07-01] MEDS: Nitrofurantoin Macrocrystals 100 MG Capsule PO (08:40)
[2018-07-01] MEDS: Venlafaxine XR 37.5 MG Capsule PO (08:40)
[2018-07-01] MEDS: CLARIFY ORDER NOTE (11:52)
--- NOTE | 2018-07-01 14:28 | PCM.DC ---
- Discharge Diagnoses Current Active Problems: Current Active and Chronic Problems (Last Updated 07/01/18 @ 08:04 by Kathryn Alonzo MD) LLQ abdominal pain (Acute) Left ovarian cyst (Acute) You will use the following diet at home:: No restrictions Discharge Activity: Return to Normal Activity - as tolerated. Rest on day of surgery and for day after surgery., May not drive while taking narcotic pain medications., May Shower, May Take a Tub Bath Return to work on:: 07/06/18 May resume sexual activity in: 1 week Call your doctor if your incision/area has: Increased Pain/ Swelling, Increased Redness Call your doctor if you observe: Fever of 101 or Higher, Inability to have a bowel movement, Using more than one pad per hour, Uncontrolled pain Change Dressing in (Days):: 4 Remove Dressing in (days):: 4 Cleanse incision/area with: Soap & Water, Keep Dressing Clean & Dry Additional Instructions: You may take Tylenol 500 - 1000 mg every 8 hrs as needed for pain. Add two (200 mg each) Ibuprofen or Two Aleve every 6 hr if needed for more severe pain. Add one OxyIR for more severe pain. Allergies/Adverse Reactions: Allergies metoclopramide [From Reglan] Allergy (Verified 06/30/18 20:17) Other ketorolac [From Toradol] Adverse Reaction (Verified 06/30/18 20:17) Rash tramadol [From Ultram] Adverse Reaction (Verified 06/30/18 20:17) Other Medications to take at Discharge Methylphenidate HCl [Concerta] 54 mg PO DAILY 07/13/17 Clonazepam [Klonopin] 0.5 mg PO TID PRN PRN 02/22/18 Venlafaxine XR [Effexor Xr] 37.5 mg PO DAILY 06/27/18 Acetaminophen [Tylenol] 500 mg PO Q4H PRN PRN tablet 07/01/18 Docusate Sodium [Colace] 100 mg PO BID PRN PRN #20 cap 07/01/18 Methylphenidate HCl [Concerta] 54 mg PO DAILY 07/01/18 Ondansetron [Zofran] 4 mg IV Q8H PRN PRN #5 vial 07/01/18 Oxycodone [Oxyir] 5 mg PO Q6H PRN PRN 2 Days #8 tablet 07/01/18 The following prescriptions were given: Oxycodone [Oxyir] 5 mg PO Q6H PRN PRN 2 Days #8 tablet PRN Reason: Mod-Severe Pain (4-10/10) Ondansetron [Zofran] 4 mg IV Q8H PRN PRN #5 vial PRN Reason: NAUSEA Docusate Sodium [Colace] 100 mg PO BID PRN PRN #20 cap PRN Reason: Constipation Primary Care Physician: Anika Gustafson PA [Primary Care Provider] - Test Results: Test results from this visit will be discussed in further detail at your follow-up appointment, if applicable. Please Follow Up With: Kathryn Alonzo MD - [phone] When: in two weeks for postoperative follow up in office Proposed Discharge Date: 07/01/18
--- NOTE | 2018-07-01 14:35 | DCINST_ITS ---
- Discharge Diagnoses Current Active Problems: Current Active and Chronic Problems (Last Updated 07/01/18 @ 08:04 by Kathryn Alonzo MD) LLQ abdominal pain (Acute) Left ovarian cyst (Acute) You will use the following diet at home:: No restrictions Discharge Activity: Return to Normal Activity - as tolerated. Rest on day of surgery and for day after surgery., May not drive while taking narcotic pain medications., May Shower, May Take a Tub Bath Return to work on:: 07/06/18 May resume sexual activity in: 1 week Call your doctor if your incision/area has: Increased Pain/ Swelling, Increased Redness Call your doctor if you observe: Fever of 101 or Higher, Inability to have a bowel movement, Using more than one pad per hour, Uncontrolled pain Change Dressing in (Days):: 4 Remove Dressing in (days):: 4 Cleanse incision/area with: Soap & Water, Keep Dressing Clean & Dry Additional Instructions: You may take Tylenol 500 - 1000 mg every 8 hrs as needed for pain. Add two (200 mg each) Ibuprofen or Two Aleve every 6 hr if needed for more severe pain. Add one OxyIR for more severe pain. Allergies/Adverse Reactions: Allergies metoclopramide [From Reglan] Allergy (Verified 06/30/18 20:17) Other ketorolac [From Toradol] Adverse Reaction (Verified 06/30/18 20:17) Rash tramadol [From Ultram] Adverse Reaction (Verified 06/30/18 20:17) Other Medications to take at Discharge Methylphenidate HCl [Concerta] 54 mg PO DAILY 07/13/17 Clonazepam [Klonopin] 0.5 mg PO TID PRN PRN 02/22/18 Venlafaxine XR [Effexor Xr] 37.5 mg PO DAILY 06/27/18 Acetaminophen [Tylenol] 500 mg PO Q4H PRN PRN tablet 07/01/18 Docusate Sodium [Colace] 100 mg PO BID PRN PRN #20 cap 07/01/18 Methylphenidate HCl [Concerta] 54 mg PO DAILY 07/01/18 Ondansetron [Zofran] 4 mg IV Q8H PRN PRN #5 vial 07/01/18 Oxycodone [Oxyir] 5 mg PO Q6H PRN PRN 2 Days #8 tablet 07/01/18 The following prescriptions were given: Oxycodone [Oxyir] 5 mg PO Q6H PRN PRN 2 Days #8 tablet PRN Reason: Mod-Severe Pain (4-10/10) Ondansetron [Zofran] 4 mg IV Q8H PRN PRN #5 vial PRN Reason: NAUSEA Docusate Sodium [Colace] 100 mg PO BID PRN PRN #20 cap PRN Reason: Constipation Primary Care Physician: Anika Gustafson PA [Primary Care Provider] - Test Results: Test results from this visit will be discussed in further detail at your follow- up appointment, if applicable. Please Follow Up With: Kathryn Alonzo MD - [phone] When: in two weeks for postoperative follow up in office Proposed Discharge Date: 07/01/18
[2018-07-01] MEDS: Bupiv/Epi 0.5% Mpf 30 ML Vial (15:24)
--- NOTE | 2018-07-01 15:33 | PCM.OP.BLANK ---
Problem List (1) LLQ abdominal pain Status: Acute (2) Left ovarian cyst Status: Acute Operative Report Date of Procedure: 07/01/18 - L ovarian cyst PROCEDURE: Laparoscopic Left oophorectomy. Partial Left salpingectomy PREOPERATIVE DIAGNOSIS: LLQ pain Enlarged L ovary, ovarian cyst POSTOPERATIVE diagnosis: LLQ pain Enlarged L ovary, ovarian cyst Surgeon: Kathryn Alonzo MD Facility Manager: LEATHA Burns Anesthesia: general anesthesia. Kang Howard CRNA EBL: minimal Complications: None Drains: Red Kraft catheter used to drain the bladder prior to initiation of the case Fluids: LR replacement Findings; Normal appearing, anteverted uterus. R fallopian tube and ovary WNL. Appendix and gallbladder surgically absent. L fallopian tube WNL. Enlarged Left ovary, freely mobile and no torsion. Gross inspection of bowel, omentum. liver edge also WNL. Photos were taken of the uterus , enlarged left ovary prior to excision of the L ovary and fallopian tube and of the uterus and pelvis after left salpingoophorectomy. Narrative account: After the risks, benefits, alternatives of procedure had been reviewed with the patient, informed consent was obtained. The patient was taken back to the Operating room with an IV running. She was positioned on the operating table in dorsal supine position, where she was given general anesthesia. Once asleep she was repositioned to the dorsal lithotomy position and prepped and draped in the usual sterile fashion. A red Kraft catheter was used to drain the bladder prior to initiating the case. A sponge stick was placed into the vagina to allow manipulation of the uterus and cervix during the case. Attention was then turned to the anterior abdominal wall where 0.25 % Marcaine with epinephrine was instilled at the suprapubic and infraumbilical skin and at a point midway between the two, in the midline. Skin incisions were then created in the midline at the suprapubic skin and at the infraumbilical skin and midway between the two. While maintaining upward traction of the anterior abdominal wall a Veress needle was inserted through the umbilical incision into the peritoneal cavity. There was free drop of saline, low opening pressure and free flow of CO2 noted. Once the intraabdominal pressure had reached 12 mm of mercury the Veress needle was removed and a bladeless 5 mm trocar was placed through infraumbilical skin incision into the peritoneal cavity. Correct placement was confirmed using the scope. Under direct visualization then with the patient in Trendelenburg position, a bladeless 5 mm trocar was inserted in through suprapubic skin incision into the peritoneal cavity and at a point midway between the infraumbilical and suprapubic trocars. The uterus as anteverted. The left ovary was smoothly encapsulated and enlarged. The fallopian tubes and the Right ovary were normal appearing. The Left ovary and fallopian tube were grasped and retracted medially and the fallopian tube and ovary were excised from the infundibulopelvic ligament and the utero-ovarian ligament using a [place] LigaSure device. The L ovary and fallopian tube were then free in the pelvic and tucked at the anterior cul de sac. The suprapubic 5 mm trocar was removed and the skin incision extended and a bladeless 10 mm trocar was then inserted into the peritoneal cavity under direct visualization. An EndoCatch bag was placed into the pelvis and the Left fallopian tube and ovary were placed into the bag and brought to the skin surface. The trocar was removed, the bag was opened and the L fallopian tube and ovary were removed from the intact bag through the suprapubic skin incision. The bag was then removed and the 10 mm bladeless trocar was replaced into the peritoneal cavity. The pelvis and abdomen were inspected and irrigated. Excellent hemostasis was noted. The specimen was set aside for later pathology review. Photos were taken of the uterus and remaining right fallopian tube and ovary, and of the RUQ and liver edge. At this point the the procedure was terminated. The pneumoperitoneum was reduced and the instruments and trocars were removed from he the anterior abdominal wall skin. The suprapubic fascial incision was closed with a figure of 8 stitch of 2-0 Vicryl. The skin incisions were closed with 4-0 Monocryl in a subcuticular fashion. Dermabond and OpSites were applied to the skin. The sponge stick was removed from the vagina. The patient was returned to dorsal supine position. She was awakened from general anesthesia. She was transferred to the recovery room bed in stable condition after tolerating the procedure well. Sponge, lap, needle and instrument counts were correct x two. Medications given preop and intraoperatively included: 10 cc+ of 1/2 % Marcaine with epinephrine --used as a subcutaneous block. For a complete listing of medications given preop and intraop , please see the anesthesia record.
[2018-07-01] MEDS: HYDROcodone Bitartrate/Apap 5/325 Tablet PO (21:06)
--- NOTE | 2018-07-02 | OV_PTH ---
PATIENT: BRANDEN THOMAS LOC: MS3 U#:[id number] AGE/SX: ROOM: [facility] [place] RE06/30/[address]: Dr. Kathryn Alonzo MD : 1990 BED: 1 DIS: 07/02/2018 SPEC #: [id number] RECD: 07/02/18 12:21 STATUS: BERNIE CLAUDINE #: [id number] MYLA: 07/02/18 00:[address]: Kathryn Alonzo DEPT: SURGICAL PATHOLOGY RECD BY: Venkata Garcia ENTERED: 07/02/18 12:22 SP TYPE: OVARY OTHR DR: LEILA Acharya Tissues: Left ovary Procedures: Surgery Specimen Level IV HEADER OPERATION: Laparoscopic partial salpingectomy, oophorectomy PRE-OP DIAGNOSIS: Left lower quadrant pain, left ovarian cyst TISSUE SUBMITTED: Left ovary and partial tube MICROSCOPIC DIAGNOSIS Left ovary and partial tube: Fallopian tube - no pathologic diagnosis. Ovary - hemorrhagic corpus luteum cyst (3 cm in greatest dimension). - Physiologic follicular cysts. YUSEF:scotty 07/03/18 MICROSCOPIC DESCRIPTION Slides are reviewed. GROSS DESCRIPTION Received in fixative is one container labeled with the patient's name and designated left ovary and partial tube. The specimen consists of an ovary (in multiple pieces) and fallopian tube in three pieces. One of the fragments appears to consist of fimbrial end. The two pieces of fallopian tube measure 3 cm in length and 0.5 cm in diameter. The fimbrial end measures 1.5 x 1 x 0.5 cm. Sections reveal unremarkable cut surfaces. The ovary in multiple pieces measure in aggregate 6 x 6 x 3 cm. One of the pieces appears to consist of contents of hemorrhagic cyst. The largest piece shows a collapsed cyst measuring 3 cm in greatest dimension. The external surface of the ovary appears to be smooth. Sections of the largest piece of the ovary also reveal multiple cysts filled with clear fluid. Casserole Preparer sections are submitted in four cassettes as follows: 1 ? fallopian tube, 2-4 ? ovary. / YUSEF:scotty 07/02/18 TC:5 CPT: 27241
[2018-07-02] MEDS: Morphine 2 MG/ML Syringe IV ×3 (01:20→11:36)
[2018-07-02] MEDS: HYDROcodone Bitartrate/Apap 5/325 Tablet PO ×2 (04:31→10:31)
[2018-07-02] MEDS: Lactated Ringers 1,000 ML 125 ML IV ×2 (04:33→11:39)
[2018-07-02 04:34] VITALS: BP 114/78; PULSE 54; RESP 18; TEMP 36.7; O2SAT 100
--- NOTE | 2018-07-02 07:58 | PN_ITS ---
Patient Problems: Active and Suspected Problems (Last Updated 07/01/18 @ 08:04 by Kathryn Alonzo MD) LLQ abdominal pain (Acute) Left ovarian cyst (Acute) Subjective: POD#1 L/S LSO States better this am, rough night. Tried to get up and nearly blacked out. Pain in R shoulder Using Kpad Using [place] and Morphine around the clock overnight. Requesting pain med soon again. Unable to take Toradol 2/2 rash. IS able to take Aleve or Ibuprofen. Begin NSAID dosing and goal to taper narcotics (discussed constipation and potential addiction with narcotics) - Physical Exam General: Alert, Oriented x3, Cooperative, No apparent distress HEENT: Atraumatic Neck: Supple Abdomen: Soft, Non Tender Extremities: No clubbing, No cyanosis, No edema Skin: Incision - L/S incisions CDI. no shadow drainage. Neurological: Cranial nerves II-XII grossly intact Psych/Mental Status: Normal Affect Vital Signs Temp Pulse Resp BP Pulse Ox 98.1 F 54 L 18 114/78 100 07/02/18 04:34 07/02/18 04:34 07/02/18 04:34 07/02/18 04:34 07/02/18 04:34 Oxygen Flow Rate (L/min) 1 Oxygen Delivery Method Room Air Weight: 61.774 kg Body Mass Index (BMI) 20.1 Intake and Output for Last 24 Hours 06/30/18 18 07/02/18 23:59 23:59 23:59 Intake Total 2500 / 2500 2622 / 2622 Output Total 200 / 200 Balance 2300 / 2300 2622 / 2622 Medical Necessity - Tobacco Use Smoking Status: Never smoker Assessment/Plan All Active Problems (Last Updated 07/01/18 @ 08:04 by Kathryn Alonzo MD) LLQ abdominal pain (Acute) Left ovarian cyst (Acute) POD#1 L/S LSO #1 LLQ pain, L ovarian cyst shoulder pain last night, near syncopal episode. Kept overnight Appears stable this am. NAD. K pad to abdomen. Incisions CDI D/C home today. RTO in 2 wk for postop incision check.
[2018-07-02] MEDS: clonazePAM 0.5 MG Tablet PO (08:03)
[2018-07-02] MEDS: Venlafaxine XR 37.5 MG Capsule PO (08:06)
[2018-07-02] MEDS: Polyethylene Glycol 3350 17 GM PACKET PO (08:06)
[2018-07-02] MEDS: CLARIFY ORDER NOTE (08:13)
[2018-07-02 10:30] VITALS: BP 120/82; PULSE 61; RESP 16; TEMP 36.9; O2SAT 99
== END 2018-07-02 13:30 | disposition home or self-care (01) ==
LOC: ED 21:57 → MS3 22:22
PROVIDERS: Admitting Provider Obstetrics & Gynecology; Emergency Provider Emergency Medicine; Family Provider Physician Assistant Medical; PCP Physician Assistant Medical; Visit Provider Obstetrics & Gynecology
PROC: (CPT 58720; principal; 2018-07-01 09:45)
DX: N83.12 Corpus luteum cyst of left ovary (principal); G40.909 Epilepsy, unspecified, not intractable, without status epilepticus; F41.9 Anxiety disorder, unspecified; F32.9 Major depressive disorder, single episode, unspecified; Z79.899 Other long term (current) drug therapy; R30.0 Dysuria; G89.29 Other chronic pain; M25.512 Pain in left shoulder
CPT/HCPCS: 58661; 36415; 80048; 85025; 88305; 96361; 96374; 96375; 96376; 99218; 99282; J7120; A4216; G0378; J2405

== ENCOUNTER 2018-07-05 08:54 | Emergency (ER) | payer MEDICAID, SELFPAY ==
[2018-07-05 08:54] VITALS: BP 140/80; PULSE 118; RESP 18; TEMP 37.2; O2SAT 98; BMI 19.9
--- NOTE | 2018-07-05 09:14 | ED.DCSUM_ITS ---
- ER Visit Summary Date of Service: 07/05/18 Chief Complaint: Nausea, vomiting and abdominal pain History of Present Illness: The patient is a 28 F complaining of nausea, vomiting and solving abdominal pain. 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 She believes her left ovary was removed also. States she was doing well. 2 days ago had a mild fever which is since resolved. Has had some nausea and vomiting without diarrhea. No constipation. No dysuria. And started having discomfort at the surgical sites. She said abdominal pain currently is resolved. She still feels nauseated. Patient has previously had an appendectomy, cholecystectomy and . Physical Examination: Well-appearing young female. Vital signs are stable. She is afebrile. She does not look septic or toxic. She does not look significantly dehydrated. She is in no distress. HEENT exam is unremarkable. Moist mucous membranes. Neck nontender. Lungs clear to auscultation bilaterally. Heart regular rhythm rate about 105 no murmur. Abdomen is soft. Nondistended. Normal bowel sounds. No peritoneal signs. Really no significant tenderness whatsoever. She has 2 bandages over port sites along her umbilicus which are healing nicely. There is no redness. No discharge. Normal bowel sounds. Moving all 4 extremities. Calves nontender no edema. Neurologically she is awake and alert. Back is nontender. Test Results: CBC shows normal white count of 5. Hemoglobin 14. UA was negative. No signs of infection. Emergency Department Course and Treatment: Treated with 1 L IV fluids. Zofran. Clinically the patient does not need pain medications and did not want any. Repeat exam at 1037 patient is doing well. Is comfortable being discharged home. Abdomen remains benign Treatment Plan: Zofran for nausea. Plenty of fluids and rest. Follow-up with Dr. Alonzo this week. Disposition: Discharge Impression: Abdominal pain resolved status post left ovarian cyst resection laparoscopically. Nausea and vomiting This note was generated with [employer] dictation software. It may contain incorrect words, spelling, and punctuation that were not noted in review of the chart prior to signing ED Disposition - Plan for ED Patient: Chief Complaint: Nausea/Vomiting Referrals: Anika Gustafson PA [Primary Care Provider] -
[2018-07-05 09:29] LABS: Bacteria 0 SEEN /hpf (None Seen); Mucous, Urine 0 SEEN /hpf (<or=2+); White Blood Cells 0 SEEN /hpf (0-5)
[2018-07-05 09:30] LABS: Color, Urine Yellow (Yellow); Glucose, Dipstick Normal (Normal); Ketone-Dipstick Negative (Negative); Leukocyte Esterase-Dipstick Negative /ul (Negative); Nitrite-Dipstick Negative (Negative); Occult Blood-Urine 250 /ul (Negative); Protein-Dipstick Negative (Negative); Specific Gravity, Urine 1.005 (1.002-1.030); Urine Bilirubin Dipstick Negative (Negative); Urine Clarity Clear (Clear); Urine Urobilinogen Normal (Normal)
[2018-07-05 09:32] LABS: Absolute Lymphocyte Count 1.38 X10^3/ul (0.83-4.51); Absolute Neutrophil Count 3.1 X10^3/uL (2.0-7.7); Basophil# 0.01 X10^3/uL; Basophil% 0.2 % (0-1); Eosinophil# 0.17 X10^3/uL; Eosinophils% 3.4 % (0-5); Hematocrit 45.3 % (37-47); Hemoglobin 14.3 g/dl (12.0-15.0); Lymphocyte # 1.38 X10^3/ul (4.0); Lymphocyte % 27.7 % (19-41); Mean Corp Hgb Conc 31.6 g/gl (32-36); Mean Corpuscular Hgb 26.9 pg (27.0-32.0); Mean Corpuscular Volume 85.3 fL (81-99); Mean Platelet Vol. 10.7 fl (6.2-12.0); Monocyte# 0.35 X10^3/uL; Neutrophil # 3.07 X10^3/uL (2.7-7.7); Neutrophil % 61.5 % (47-70); Platelet Count 232 K/mm3 (150-450); RBC Distribution Width CV 17.1 % (11.6-14.6); RBC Distribution Width SD 54.1 fl (35.1-43.9); Red Blood Count 5.31 M/mm3 (4.2-5.4)
[2018-07-05 09:34] LABS: POSITIVE COUNT NO; POSITIVE DIFFERENTIAL NO; POSITIVE MORPHOLOGY NO
[2018-07-05 09:36] LABS: Red Blood Cells-Urine 0-5 SEEN /hpf (0-5); Squamous Epithelial Cells - UA 0-5 SEEN /hpf (5-10)
[2018-07-05] MEDS: 0.9% Normal Saline 1,000 ML 1000 ML IV (09:43)
[2018-07-05] MEDS: Ondansetron 4 MG/2 ML Vial IV (09:44)
--- NOTE | 2018-07-05 10:38 | ED.DEP ---
ED Disposition - Plan for ED Patient: Disposition: Home or Assisted Living Chief Complaint: Nausea/Vomiting Instructions: ED Nausea Vomiting Prescriptions: Ondansetron [Zofran Odt] 4 mg PO Q4H PRN PRN #7 tab.rapdis PRN Reason: Nausea Referrals: Kathryn Alonzo MD [STAFF PHYSICIAN] - 3-5 Days if not improving Additional Instructions: Plenty of fluids and rest. Tylenol for pain. Zofran as needed for nausea. Follow-up with Dr. Kathryn Alonzo this week.
[2018-07-05 10:48] VITALS: BP 128/72; PULSE 86; RESP 16; O2SAT 98
== END 2018-07-05 10:49 | disposition home or self-care (01) ==
PROVIDERS: Emergency Provider Emergency Medicine; Family Provider Physician Assistant Medical; PCP Physician Assistant Medical
DX: R10.9 Unspecified abdominal pain (principal); Z98.890 Other specified postprocedural states; R11.2 Nausea with vomiting, unspecified; Z90.49 Acquired absence of other specified parts of digestive tract; F32.9 Major depressive disorder, single episode, unspecified; F41.9 Anxiety disorder, unspecified
CPT/HCPCS: 81001; 85025; 96361; 96374; 99284; J7030; A4216; J2405

== ENCOUNTER 2019-04-18 22:49 | Emergency (ER) | payer MEDICAID, SELFPAY ==
[2019-04-18 22:50] VITALS: BP 124/73; PULSE 82; RESP 15; TEMP 36.6; O2SAT 97; BMI 19.2
--- NOTE | 2019-04-18 23:15 | ED.VIS.GEN ---
History of Present Illness Chief Complaint: Seizure Informant: Patient, Significant Other Onset: Today - JPTA Timing: Lasts - less than 1 minute Quality: tonic-clonic full body Location: all over Current Severity: gone Maximum Severity: Severe Worsened by: nothing Relieved by: nothing; spont resolution Associated Symptoms: bladder incontinence Narrative: Patient has a seizure disorder that she takes Trileptal for. She also has a history of migraines, which commonly preceded her seizures when she has them. She had a migraine today for multiple hours prior to the actual seizure, she only had one today, her last one was about 4 months ago. States also she felt like she was getting a urinary infection yesterday with dysuria and frequency, she started having gradual onset of pain into her right flank today, she has had kidney infections before and it felt like one. While being driven to the ER, she had a seizure in the car. states it was relatively brief and she was lethargic/postictal for 10 minutes or so afterwards. She now feels fatigued, headache, right flank pain, very nauseated and she has been vomiting off and on today. The headache she currently has is common for her migraines, although she does not get them very often. She has been compliant with her Trileptal and not missed any doses. Does not use any drugs. - Past Medical History (1) Migraines Status: Chronic (2) Seizure disorder Status: Chronic Past Medical History - Allergies and Home Meds Allergies/Adverse Reactions: Allergies ketorolac [From Toradol] Allergy (Verified 04/18/19 22:52) Rash metoclopramide [From Reglan] Allergy (Verified 04/18/19 22:52) Other tramadol [From Ultram] Adverse Reaction (Verified 04/18/19 22:52) Other Primary Care Physician: Anika Gustafson PA [Primary Care Provider] - Surgical History: appendectomy, cholecystectomy, - - Two prior C section deliveries for preeclampsia and unfavorable cervix. Two laparoscopies for removal of Mirena IUD. ESSURE surgical sterilization. Lives: With Family Smoking Status: Never smoker Drugs: None - Family History Maternal Family History: Reports: No pertinent history Review of Systems General: Reports: Malaise. Denies: Chills, Fever, Sweats Eyes: Reports: Blurred Vision - bilaterally. Denies: Diplopia ENT: Denies: Rhinorrhea, Sore throat Cardiovascular: Denies: Chest pain, Palpitations Respiratory: Denies: Dyspnea, Cough, Dyspnea on exertion Gastrointestinal: Reports: Abdominal pain, Nausea, Vomiting. Denies: Diarrhea, Melena, Hematochezia Genitourinary: Reports: Hematuria - yesterday. Denies: Dysuria, Frequency Musculoskeletal: Reports: Back pain. Denies: Extremity Pain Skin: Denies: Rash, Abscess, Wounds Neurological: Reports: Headache. Denies: Weakness, Parasthesia, Numbness Physical Exam Vital Signs/Narrative: Vital Signs Temp Pulse Resp BP Pulse Ox 04/18/19 22:50 97.8 F 82 15 124/73 H 97 Inital Vital Signs reviewed: Yes General: Well nourished, Well developed, No Acute Distress Head: Normocephalic, Atraumatic Eyes: Perrl - 5mm; photophobic, EOMI ENT: Moist mucous membranes, No rhinorrhea Neck: Supple, Nontender Cardiovascular: Regular rate, Regular rhythm, No murmurs Respiratory: No distress, CTA bilaterally, Chest nontender Abdomen: Soft, Nondistended, Normal bowel sounds, Tender - RLQ and right mid-abd mild. Negative for: Guarding, Rebound tenderness Back: Normal Inspection, CVA tenderness - right only Extremities: Nontender, No edema Skin: Normal color, No rash, No Trauma Neurological: Alert, Oriented x3, Cranial nerves II-XII grossly intact, Normal Strength, Normal Sensation Psychological: Normal affect, Normal Mood Diagnostic/Tx/Re-eval Laboratory Results 04/18/19 04/18/19 04/18/19 23:05 23:05 23:15 WBC 6.1 RBC 3.96 L Hgb 10.6 L Hct 33.7 L MCV 85.1 MCH 26.8 L MCHC 31.5 L RDW 16.6 H RDW Differential 52.0 H Plt Count 237 MPV 9.9 Immature Gran % (Auto) 0.200 Neut % (Auto) 56.4 Lymph % (Auto) 35.5 [place] % (Auto) 7.2 Eos % (Auto) 0.5 Baso % (Auto) 0.2 Absolute Neuts (auto) 3.5 Absolute Lymphs (auto) 2.17 Total Counted Not Reportable Sodium Potassium Chloride Carbon Dioxide Anion Gap BUN Creatinine Estim Creat Clear Calc Est GFR (MDRD) Af Amer Est GFR (MDRD) Non-Af BUN/Creatinine Ratio Glucose Calcium Urine Color Yellow Urine Clarity Clear Urine pH 6.5 Ur Specific [place] 1.005 Urine Protein Negative Urine Glucose (UA) Normal Urine Ketones Negative Urine Occult Blood Negative Urine Nitrite Negative Urine Bilirubin Negative Urine Urobilinogen Normal Ur Leukocyte Esterase Negative Urine RBC 0 SEEN Urine WBC 0 SEEN Ur Squamous Epith Cells 0-5 SEEN Urine Bacteria 0 SEEN Urine Mucus 0 SEEN Urine Test Negative 04/18/19 23:15 WBC RBC Hgb Hct MCV MCH MCHC RDW RDW Differential Plt Count MPV Immature Gran % (Auto) Neut % (Auto) Lymph % (Auto) [place] % (Auto) Eos % (Auto) Baso % (Auto) Absolute Neuts (auto) Absolute Lymphs (auto) Total Counted Sodium 138 Potassium 3.7 Chloride 105 Carbon Dioxide 28.0 Anion Gap 5 BUN 14 Creatinine 0.81 Estim Creat Clear Calc 97.12 Est GFR (MDRD) Af Amer 108 Est GFR (MDRD) Non-Af 90 BUN/Creatinine Ratio 17.3 Glucose 78 Calcium 8.5 Urine Color Urine Clarity Urine pH Ur Specific [place] Urine Protein Urine Glucose (UA) Urine Ketones Urine Occult Blood Urine Nitrite Urine Bilirubin Urine Urobilinogen Ur Leukocyte Esterase Urine RBC Urine WBC Ur Squamous Epith Cells Urine Bacteria Urine Mucus Urine Test - Medical Decision Making Patient was given Phenergan for her migraine and it actually felt much better and resolved. She was also given morphine for her right flank pain, that is under control and feels much better as well. Her nausea is improved. Her work-up is unremarkable, urine shows no sign of infection. It is possible that she has a kidney stone, we discussed management of that, which is expectant, and supportive care. They are asking for something for pain, I will give her a few [place], I do not think she needs emergent imaging right now but if she has intractable symptoms she is encouraged to return. Given strainers for her urine, as well as a prescription for Phenergan. She has not taken her Trileptal yet tonight, she will go home and take it. She has had migraines trigger breakthrough seizures in the past which is likely what happened tonight, patient and significant other state that she has been under quite a bit of stress which could have triggered her migraine. No lateralizing neurologic symptoms or findings here to suggest a CT is indicated. ED Disposition - Plan for ED Patient: Disposition: Home or Assisted Living Diagnosis: Migraine headache, Breakthrough seizure, Seizure disorder, Acute right flank pain Instructions: SEIZURE, Recurrent [Adult] Prescriptions: Hydrocodone Bitart/Apap 5-325 [[place] 5MG-325MG] 1 tablet PO Q4H PRN PRN 2 Days #10 tablet PRN Reason: Pain Transmission Status: Received by [facility]ENELLE GOM[facility] [address] proMETHazine tablet [Phenergan] 25 mg PO Q6H PRN PRN #10 tab PRN Reason: Nausea Transmission Status: Pending to [facility]ENEL[facility] [address] Referrals: Anika Gustafson PA [Primary Care Provider] - 3-5 Days if not improving (or return to the ER for recurrent seizure/intractable symptoms)
[2019-04-18 23:25] LABS: Bacteria 0 SEEN /hpf (None Seen); Mucous, Urine 0 SEEN /hpf (<or=2+); Red Blood Cells-Urine 0 SEEN /hpf (0-5); White Blood Cells 0 SEEN /hpf (0-5)
[2019-04-18] MEDS: 0.9% Normal Saline 1,000 ML 999 ML IV (23:27)
[2019-04-18] MEDS: proMETHazine 25 MG/ML Syringe 12.5 MG IV (23:27)
[2019-04-18] MEDS: Morphine 4 MG/ML Syringe IV (23:27)
[2019-04-18 23:29] LABS: Color, Urine Yellow (Yellow); Glucose, Dipstick Normal (Normal); Internal QC Validated? YES +Cl - CLEAR BKGD; Ketone-Dipstick Negative (Negative); Leukocyte Esterase-Dipstick Negative /ul (Negative); Nitrite-Dipstick Negative (Negative); Occult Blood-Urine Negative /ul (Negative); Pregnancy, Urine Negative Negative; Protein-Dipstick Negative (Negative); Specific Gravity, Urine 1.005 (1.002-1.030); Urine Bilirubin Dipstick Negative (Negative); Urine Clarity Clear (Clear); Urine Urobilinogen Normal (Normal); Urine pH 6.5 (5.0 - 8.0)
[2019-04-18 23:29] LABS: Absolute Lymphocyte Count 2.17 X10^3/ul (0.83-4.51); Absolute Neutrophil Count 3.5 X10^3/uL (2.0-7.7); Basophil# 0.01 X10^3/uL; Basophil% 0.2 % (0-1); Eosinophil# 0.03 X10^3/uL; Eosinophils% 0.5 % (0-5); Hematocrit 33.7 % (37-47); Hemoglobin 10.6 g/dl (12.0-15.0); Lymphocyte # 2.17 X10^3/ul (4.0); Lymphocyte % 35.5 % (19-41); Mean Corp Hgb Conc 31.5 g/gl (32-36); Mean Corpuscular Hgb 26.8 pg (27.0-32.0); Mean Corpuscular Volume 85.1 fL (81-99); Mean Platelet Vol. 9.9 fl (6.2-12.0); Monocyte# 0.44 X10^3/uL; Monocyte% 7.2 % (0-10); Neutrophil # 3.45 X10^3/uL (2.7-7.7); Neutrophil % 56.4 % (47-70); POSITIVE COUNT NO; POSITIVE DIFFERENTIAL NO; POSITIVE MORPHOLOGY NO; Platelet Count 237 K/mm3 (150-450); RBC Distribution Width CV 16.6 % (11.6-14.6); Red Blood Count 3.96 M/mm3 (4.2-5.4); White Blood Count 6.1 K/mm3 (4.4-11.0)
[2019-04-18 23:39] LABS: Squamous Epithelial Cells - UA 0-5 SEEN /hpf (5-10)
[2019-04-18 23:41] LABS: Anion Gap 5 (5-15); BUN 14 mg/dL (7-18); BUN/Creat Ratio 17.3 RATIO (10-20); Calcium,Total 8.5 mg/dL (8.5-10.1); Chloride 105 mmol/L (98-107); Creatinine, Serum 0.81 mg/dL (0.55-1.02); EST Glomerular Filtration Rate 90 mL/min (>60); Est Glom Filt Rate - Afr Amer 108 mL/min (>60); Estimated Creatinine Clearance 97.12 ml/min; Glucose 78 mg/dL (74-106); Potassium 3.7 mmol/L (3.5-5.1); Sodium Level 138 mmol/L (136-145)
== END 2019-04-19 00:46 | disposition home or self-care (01) ==
PROVIDERS: Emergency Provider Emergency Medicine; Family Provider Physician Assistant Medical; PCP Physician Assistant Medical
DX: G43.909 Migraine, unspecified, not intractable, without status migrainosus (principal); G40.909 Epilepsy, unspecified, not intractable, without status epilepticus; Z90.49 Acquired absence of other specified parts of digestive tract; Z88.8 Allergy status to other drugs, medicaments and biological substances; R10.9 Unspecified abdominal pain
CPT/HCPCS: 80048; 81001; 81025; 85025; 99283; J7030; A4216

== ENCOUNTER 2019-07-23 11:20 | Emergency (ER) | payer MEDICAID, SELFPAY ==
[2019-07-23] VITALS (7 sets, daily range): BP systolic 122–148; BP diastolic 79–99; PULSE 91–140; RESP 12–26; TEMP 36.6–36.8; O2SAT 98–100; BMI 19.2
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
--- NOTE | 2019-07-23 12:33 | CM.ED ---
SOCIAL WORK CALL TO [facility], SPOKE WITH BRANDEN. PER BRANDEN, IN NETWORK WITH PATIENT'S INSURANCE AND DOES HAVE BED AVAILABILITY. REFERRAL TO BE FAXED ONCE PATIENT IS MEDICALLY CLEARED. Angeles LLANOS, CORPORATE PARALEGAL, SUPERVISOR FRUIT GRADING
[2019-07-23 12:46] LABS: Absolute Lymphocyte Count 1.43 X10^3/uL (0.83-4.51); Basophil# 0.02 X10^3/uL; Basophil% 0.3 % (0-1); Eosinophil# 0.01 X10^3/uL; Eosinophils% 0.1 % (0-5); Hematocrit 45.2 % (37-47); Lymphocyte # 1.43 X10^3/ul (4.0); Lymphocyte % 20.3 % (19-41); Mean Corp Hgb Conc 33.2 g/dL (32-36); Mean Corpuscular Volume 93.4 fL (81-99); Monocyte# 0.56 X10^3/uL; NRBC Flagged by Analyzer 0 % (0-5); Neutrophil # 4.99 X10^3/uL (2.7-7.7); Platelet Count 328 K/mm3 (150-450); Red Blood Count 4.84 M/mm3 (4.2-5.4)
[2019-07-23 12:47] LABS: Amphetamine Urine VISTA NEGATIVE (<1000 ng/mL); Barbiturate Urine VISTA NEGATIVE (< 200 ng/mL); Benzodiazepine Urine VISTA NEGATIVE (< 200 ng/mL); Cocaine Urine VISTA NEGATIVE (< 300 ng/mL); Ecstacy Urine VISTA NEGATIVE (< 500 ng/mL); Methadone Urine VISTA NEGATIVE (< 300 ng/mL); PCP Urine VISTA NEGATIVE (< 25 ng/mL); THC Urine VISTA NEGATIVE (< 50 ng/mL); Vista UDS pH Range 8
[2019-07-23 12:59] LABS: Anion Gap 8 (5-15); BUN 10 mg/dL (7-18); BUN/Creat Ratio 13.2 RATIO (10-20); Calcium,Total 9.2 mg/dL (8.5-10.1); Chloride 103 mmol/L (98-107); Creatinine, Serum 0.76 mg/dL (0.55-1.02); EST Glomerular Filtration Rate 97 mL/min (>60); Est Glom Filt Rate - Afr Amer 117 mL/min (>60); Estimated Creatinine Clearance 102.59 ml/min; Glucose 81 mg/dL (74-106); Potassium 3.8 mmol/L (3.5-5.1); Sodium Level 139 mmol/L (136-145)
[2019-07-23 13:15] LABS: Internal QC Validated? YES +Cl - CLEAR BKGD; Pregnancy, Serum, hCG Quali. NEGATIVE Negative
--- NOTE | 2019-07-23 13:40 | CM.ED ---
SOCIAL WORK REFERRAL FAXED TO [facility].
[2019-07-23] MEDS: LORazepam 1 MG Tablet PO (14:16)
--- NOTE | 2019-07-23 14:20 | CM.ED ---
SOCIAL WORK UPDATED BY NURSEANDREW PATIENT HAVING PANIC ATTACK. REQUESTING THIS WORKER SIT WITH PATIENT. THIS WORKER TO ROOM. PATIENT TEARFUL AND UNABLE TO CALM SELF DOWN. ACTIVE LISTENING AND EMOTIONAL SUPPORT PROVIDED.
--- NOTE | 2019-07-23 14:25 | CM.ED ---
SOCIAL WORK CALL FROM [facility], PATIENT ACCE[facility] BY DR[facility] CAL[facility]. REPORT TO BE CALLED TO . NURSE, RAH, DR. MÉNDEZ AND SURVEYOR HYDROGRAPHIC UPDATED. REQUESTING PINK SLIP BE FAXED. WILFREDO LLANOS, ENGRAVER COPPERPLATE, BOTTLE SELECTOR.
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
--- NOTE | 2019-07-23 14:36 | CM.ED ---
SOCIAL WORK PINK SLIP COMPLETED BY DR. MÉNDEZ AND FAXED TO [facility] PER REQUEST. PATIENT UPDATED ON ACCEPTANCE. PATIENT CALM AND COOPERATIVE. ALL QUESTIONS ANSWERED. WILFREDO LLANOS, METAL CUT OFF SAW TENDER, BODY LINER.
--- NOTE | 2019-07-23 14:37 | ED.RN ---
3 attempts to call report.
--- NOTE | 2019-07-23 14:39 | ED.RN ---
called report to nurse danay.
--- NOTE | 2019-07-23 15:06 | CM.ED ---
SOCIAL WORK UPDATED BY WATER TAXI CAPTAIN, ROSIE. ETA FOR TRANSPORT IS 1730. PATIENT AND MOTHER UPDATED.
[2019-07-23] MEDS: Acetaminophen 500 MG Tablet 1000 MG PO (17:18)
[2019-07-23] MEDS: Ondansetron ODT 4 MG Tablet PO (17:19)
== END 2019-07-23 17:52 ==
PROVIDERS: Emergency Provider Emergency Medicine; Family Provider Internal Medicine; PCP Internal Medicine
DX: F32.9 Major depressive disorder, single episode, unspecified (principal); R45.851 Suicidal ideations; F41.9 Anxiety disorder, unspecified; G40.909 Epilepsy, unspecified, not intractable, without status epilepticus; Z86.2 Personal history of diseases of the blood and blood-forming organs and certain disorders involving the immune mechanism; Z79.899 Other long term (current) drug therapy
CPT/HCPCS: 36415; 80048; 80307; 80320; 84703; 85025; 99282; J7030; G0480

== ENCOUNTER 2019-10-13 17:05 | Emergency (ER) | payer MEDICAID, SELFPAY ==
[2019-07-23 11:22] VITALS: BMI 19.2
[2019-10-13 17:06] VITALS: BP 136/74; PULSE 106; RESP 18; TEMP 36.6; O2SAT 98; BMI 19.0
--- NOTE | 2019-10-13 18:04 | ED.VIS.GEN ---
History of Present Illness Chief Complaint: Flank Pain Informant: Patient Onset: Yesterday Context: Gradual Onset Timing: Continuous, Waxes and wanes Location: left flank Narrative: Patient is a 29-year-old female with history of pyelonephritis as well as kidney stones presenting with left-sided flank pain. Patient states yesterday she felt like she might be getting a urinary tract infection because she is having some frequency of urination. She started taking azole [id number]. Today when she woke up she had significant left-sided flank pain. She states that sharp and radiates around into her abdomen. She denies any new urinary symptoms such as hematuria or dysuria. She continues to have frequency. She has associated nausea and one episode of vomiting secondary to her pain. Past Medical History - Allergies and Home Meds Allergies/Adverse Reactions: Allergies ketorolac [From Toradol] Allergy (Verified 10/13/19 17:06) Rash metoclopramide [From Reglan] Allergy (Verified 10/13/19 17:06) Other tramadol [From Ultram] Adverse Reaction (Verified 10/13/19 17:06) Other Primary Care Physician: Willie Bain [Primary Care Provider] - Surgical History: appendectomy, cholecystectomy, - - Two prior C section deliveries for preeclampsia and unfavorable cervix. Two laparoscopies for removal of Mirena IUD. ESSURE surgical sterilization. Smoking Status: Never smoker - Family History Maternal Family History: Reports: No pertinent history Review of Systems General: Reports: Chills. Denies: Fever, Sweats Eyes: Denies: Visual changes - bilaterally, Diplopia ENT: Denies: Rhinorrhea, Sore throat Cardiovascular: Denies: Chest pain, Palpitations Respiratory: Denies: Dyspnea, Cough, Dyspnea on exertion Gastrointestinal: Reports: Abdominal pain - left flank, Nausea, Vomiting. Denies: Diarrhea, Melena, Hematochezia Genitourinary: Reports: Frequency. Denies: Dysuria, Hematuria Musculoskeletal: Denies: Back pain, Extremity Pain Skin: Denies: Rash, Wounds Neurological: Denies: Headache, Weakness, Numbness Physical Exam Vital Signs/Narrative: Vital Signs Temp Pulse Resp BP Pulse Ox 10/13/19 17:06 97.8 F 106 H 18 136/74 H 98 Inital Vital Signs reviewed: Yes General: Well nourished, Well developed, No Acute Distress Head: Normocephalic, Atraumatic Eyes: Perrl, EOMI ENT: Moist mucous membranes, No rhinorrhea Neck: Supple, Nontender Cardiovascular: Regular rate, Regular rhythm, No murmurs Respiratory: No distress, CTA bilaterally, Chest nontender Abdomen: Soft, Nontender, Nondistended, Normal bowel sounds. Negative for: Guarding, Rebound tenderness Back: Normal Inspection, - - Is palpation of left lower paraspinal lumbar region. Negative for: CVA tenderness, Spinal tenderness Extremities: Nontender, No edema Skin: Normal color, No rash Neurological: Alert, Oriented x3, Cranial nerves II-XII grossly intact, Normal Strength, Normal Sensation Psychological: Normal affect, Normal Mood Diagnostic/Tx/Re-eval Clinical Impression(s) from Imaging Studies Abdomen/Pelvis CT 10/13/19 18:54 IMPRESSION: No acute bowel related findings. Negative for evidence of obstruction, perforation or inflammatory bowel changes. Status post appendectomy. Stool filled colon. Normal size of the kidneys bilaterally. 1 mm nonobstructing stone in the midpole of the right kidney and a 1 mm nonobstructing stone in the upper pole of the left kidney. Negative for hydronephrosis, ureteral or bladder stones. Unremarkable urinary bladder. Unremarkable liver spleen and pancreas. Nonvisualized gallbladder. Essure tubal implants present and remaining unchanged in position. Negative for pelvic mass or free fluid of the pelvis. Right ovary appears unremarkable. The left ovary has been removed or is obscured by nonopacified bowel. Electronically Signed: Maritza Clarke MD at 20:12 EST , Service support , Laboratory Data 10/13/19 10/13/19 10/13/19 17:46 17:46 18:15 WBC 4.3 L RBC 4.26 Hgb 13.5 Hct 41.2 MCV 96.7 MCH 31.7 MCHC 32.8 RDW Std Deviation 43.3 RDW Coeff of [place] 12.1 Plt Count 201 MPV 10.2 Immature Gran % (Auto) 0.200 Neut % (Auto) 67.4 Lymph % (Auto) 21.1 [place] % (Auto) 11.1 H Eos % (Auto) 0.0 Baso % (Auto) 0.2 Absolute Neuts (auto) 2.9 Absolute Lymphs (auto) 0.91 Nucleated RBC % 0 Sodium Potassium Chloride Carbon Dioxide Anion Gap BUN Creatinine Estim Creat Clear Calc Est GFR (MDRD) Af Amer Est GFR (MDRD) Non-Af BUN/Creatinine Ratio Glucose Calcium Total Bilirubin AST ALT Alkaline Phosphatase Total Protein Albumin Globulin Albumin/Globulin Ratio Lipase Urine Color Yellow Urine Clarity Sl. Cloudy Urine pH 6.0 Ur Specific [place] 1.020 Urine Protein Negative Urine Glucose (UA) Normal Urine Ketones Negative Urine Occult Blood Negative Urine Nitrite Negative Urine Bilirubin Negative Urine Urobilinogen Normal Ur Leukocyte Esterase Negative Urine RBC 0 SEEN Urine WBC 0 SEEN Ur Squamous Epith Cells 5-10 SEEN Urine Bacteria 0 SEEN Urine Mucus 0 SEEN Urine Test Negative 10/13/19 18:15 WBC RBC Hgb Hct MCV MCH MCHC RDW Std Deviation RDW Coeff of [place] Plt Count MPV Immature Gran % (Auto) Neut % (Auto) Lymph % (Auto) [place] % (Auto) Eos % (Auto) Baso % (Auto) Absolute Neuts (auto) Absolute Lymphs (auto) Nucleated RBC % Sodium 142 Potassium 3.9 Chloride 107 Carbon Dioxide 29.0 Anion Gap 6 BUN 14 Creatinine 0.79 Estim Creat Clear Calc 97.93 Est GFR (MDRD) Af Amer 112 Est GFR (MDRD) Non-Af 92 BUN/Creatinine Ratio 17.8 Glucose 87 Calcium 8.6 Total Bilirubin 0.10 L AST 18 ALT 28 Alkaline Phosphatase 54 Total Protein 6.7 Albumin 3.8 Globulin 2.9 Albumin/Globulin Ratio 1.3 Lipase 134 Urine Color Urine Clarity Urine pH Ur Specific [place] Urine Protein Urine Glucose (UA) Urine Ketones Urine Occult Blood Urine Nitrite Urine Bilirubin Urine Urobilinogen Ur Leukocyte Esterase Urine RBC Urine WBC Ur Squamous Epith Cells Urine Bacteria Urine Mucus Urine Test - Medical Decision Making Patient evaluated for left-sided flank pain. She appears nontoxic but mildly uncomfortable. She does report increased frequency of urination. States the pain feels like a prior kidney stone. Urinalysis is normal. Urine is negative. Abdomen is soft and nontender. She does not have significant CVA tenderness. CBC and CMP are grossly unremarkable. White blood cell count was mildly low at 4.3. CT of the abdomen pelvis obtained which does not show any acute intra-abdominal pathology. She does have renal stones but no signs of ureterolithiasis. On reevaluation patient is improvement of her symptoms. She was given 1 dose of morphine as well as Zofran. Initiate ordered Toradol but she has a history of IV Toradol. However, she can take ibuprofen at home. The exact cause of her pain is not clear but I do think she is stable for outpatient follow-up. She is otherwise well-appearing. She is agreeable with this. She is counseled on signs symptoms require return emergency room. Patient discharged home in stable condition. She is discharged home with a course of Motrin and Zofran. ED Disposition - Plan for ED Patient: Disposition: Home or Assisted Living Diagnosis: Acute left flank pain Instructions: FLANK PAIN, Uncertain Cause Prescriptions: Ibuprofen [Motrin] 600 mg PO Q6H PRN PRN #20 tab PRN Reason: Pain Or Fever Prescription Printed Ondansetron [Zofran Odt] 4 mg PO Q8H PRN PRN #10 tab PRN Reason: Nausea Prescription Printed Referrals: Willie Bain [Primary Care Provider] - Additional Instructions: Your work-up was all normal today. You do not have findings consistent with a kidney stone or a kidney infection/bladder infection. The exact cause of your pain is not clear however I do think you are safe to follow-up with your primary care doctor. Please return the emergency room if you develop worsening or new symptoms.
[2019-10-13] MEDS: 0.9% Normal Saline 1,000 ML 1000 ML IV (18:27)
[2019-10-13] MEDS: Morphine 4 MG/ML Syringe IV (18:27)
[2019-10-13] MEDS: Ondansetron 4 MG/2 ML Vial IV (18:28)
[2019-10-13 18:29] LABS: Absolute Lymphocyte Count 0.91 X10^3/uL (0.83-4.51); Absolute Neutrophil Count 2.9 X10^3/uL (2.0-7.7); Basophil# 0.01 X10^3/uL; Basophil% 0.2 % (0-1); Hematocrit 41.2 % (37-47); Hemoglobin 13.5 g/dL (12.0-15.0); Lymphocyte # 0.91 X10^3/ul (4.0); Lymphocyte % 21.1 % (19-41); Mean Corp Hgb Conc 32.8 g/dL (32-36); Mean Corpuscular Hgb 31.7 pg (27.0-32.0); Mean Corpuscular Volume 96.7 fL (81-99); Mean Platelet Vol. 10.2 fl (6.2-12.0); Monocyte# 0.48 X10^3/uL; Monocyte% 11.1 % (0-10); NRBC Flagged by Analyzer 0 % (0-5); Neutrophil # 2.91 X10^3/uL (2.7-7.7); Neutrophil % 67.4 % (47-70); Platelet Count 201 K/mm3 (150-450); RBC Distribution Width CV 12.1 % (11.6-14.6); RBC Distribution Width SD 43.3 fl (35.1-43.9); Red Blood Count 4.26 M/mm3 (4.2-5.4); White Blood Count 4.3 K/mm3 (4.4-11.0)
[2019-10-13 18:38] LABS: Bacteria 0 SEEN /hpf (None Seen); Mucous, Urine 0 SEEN /hpf (<or=2+); Red Blood Cells-Urine 0 SEEN /hpf (0-5); White Blood Cells 0 SEEN /hpf (0-5)
[2019-10-13 18:39] LABS: Color, Urine Yellow (Yellow); Glucose, Dipstick Normal (Normal); Ketone-Dipstick Negative (Negative); Leukocyte Esterase-Dipstick Negative /ul (Negative); Nitrite-Dipstick Negative (Negative); Occult Blood-Urine Negative /ul (Negative); Protein-Dipstick Negative (Negative); Urine Bilirubin Dipstick Negative (Negative); Urine Clarity Sl. Cloudy (Clear); Urine Urobilinogen Normal (Normal)
[2019-10-13 18:44] LABS: ALB/GLOB Ratio 1.3 RATIO (0.9-2.4); AST(SGOT) 18 U/L (15-37); Alanine Aminotransfer ALT/SGPT 28 U/L (13-56); Albumin, Serum 3.8 g/dL (3.2-5.0); Alkaline Phosphatase 54 U/L (45-117); Anion Gap 6 (5-15); BUN 14 mg/dL (7-18); BUN/Creat Ratio 17.8 RATIO (10-20); Calcium,Total 8.6 mg/dL (8.5-10.1); Chloride 107 mmol/L (98-107); Creatinine, Serum 0.79 mg/dL (0.55-1.02); EST Glomerular Filtration Rate 92 mL/min (>60); Est Glom Filt Rate - Afr Amer 112 mL/min (>60); Estimated Creatinine Clearance 97.93 ml/min; Globulin 2.9 g/dL (2.2-4.2); Glucose 87 mg/dL (74-106); Lipase 134 U/L (73-393); Potassium 3.9 mmol/L (3.5-5.1); Protein, Total 6.7 g/dL (6.4-8.2); Sodium Level 142 mmol/L (136-145)
[2019-10-13 18:45] LABS: Internal QC Validated? YES +Cl - CLEAR BKGD; Pregnancy, Urine Negative Negative
[2019-10-13 18:48] LABS: Squamous Epithelial Cells - UA 5-10 SEEN /hpf (5-10)
--- NOTE | 2019-10-13 18:54 | CT_ITS ---
STUDY: CT ABDOMEN AND PELVIS WITHOUT CONTRAST REASON FOR EXAM: Female, 29 years old. LT FLANK PAIN,PREG TEST WAS NEGATIVE -- HX:KIDNEY STONES,OVARIAN CYSTS -- PRIOR TUBAL,APPENDECTOMY,CHOLECYSTECTOMY RADIATION DOSAGE (If Supplied By Facility): CTDIvol = ( 6.17 ) mGy, DLP = ( 336.24 ) mGycm TECHNIQUE: Transaxial images were obtained from the dome of the diaphragm to the symphysis pubis without oral contrast, and without intravenous contrast. Sagittal and coronal images were reconstructed. Individualized dose optimization techniques were used for this CT. COMPARISON: Prior abdomen and pelvic CT exam of June 29, 2018 FINDINGS: The visualized lung bases are unremarkable. The visualized portions of the heart are within normal limits. Normal liver. There are surgical clips in the gallbladder fossa consistent with a prior cholecystectomy. Normal spleen. Normal pancreas. Normal bilateral adrenal glands. 1 mm nonobstructing mid pole stone of the right kidney without hydronephrosis or ureteral stones. 1 mm nonobstructing stone in the upper pole of the left kidney without hydronephrosis or ureteral stones. Nondistended, partly food filled stomach. Normal small intestine. Normal stool-filled colon. There are surgical clips in the region of the appendix consistent with a prior appendectomy. Normal abdominal aorta. Normal inferior vena cava. Normal retroperitoneum. Nondistended urinary bladder. Bilateral Essure tubal implants. Negative for pelvic mass or free fluid of the pelvis. Normal abdominal wall. Normal osseous structures. CT/Abdomen/Pelvis without Cont IMPRESSION: No acute bowel related findings. Negative for evidence of obstruction, perforation or inflammatory bowel changes. Status post appendectomy. Stool filled colon. Normal size of the kidneys bilaterally. 1 mm nonobstructing stone in the midpole of the right kidney and a 1 mm nonobstructing stone in the upper pole of the left kidney. Negative for hydronephrosis, ureteral or bladder stones. Unremarkable urinary bladder. Unremarkable liver spleen and pancreas. Nonvisualized gallbladder. Essure tubal implants present and remaining unchanged in position. Negative for pelvic mass or free fluid of the pelvis. Right ovary appears unremarkable. The left ovary has been removed or is obscured by nonopacified bowel. Electronically Signed: Maritza Clarke MD at 20:12 EST , Service support ,
[2019-10-13 21:28] VITALS: RESP 16
== END 2019-10-13 21:30 | disposition home or self-care (01) ==
PROVIDERS: Emergency Provider Emergency Medicine; Family Provider Internal Medicine; PCP Internal Medicine
DX: R10.9 Unspecified abdominal pain (principal); N20.0 Calculus of kidney; Z87.442 Personal history of urinary calculi
CPT/HCPCS: 74176; 80053; 81001; 81025; 83690; 85025; 96361; 96374; 96375; 99283; J7030; A4216; J2405

== ENCOUNTER 2020-02-26 01:02 | Emergency (ER) | payer MEDICAID, SELFPAY ==
[2020-02-26 01:03] VITALS: BP 126/94; PULSE 85; RESP 16; TEMP 36.4; O2SAT 100; BMI 21.9
--- NOTE | 2020-02-26 01:20 | CT_ITS ---
STUDY: CT ABDOMEN AND PELVIS WITHOUT CONTRAST REASON FOR EXAM: Female, 29 years old. RT FLANK PAIN/NAUSEA/HEMATURIA, Hx of kidney stones, tubal ligation, lt oopherectomy,appendectomy and cholecystectomy RADIATION DOSAGE (If Supplied By Facility): CTDIvol = ( 6.63 ) mGy, DLP = ( 354.63 ) mGycm TECHNIQUE: Transaxial images were obtained from the dome of the diaphragm to the symphysis pubis without oral contrast, and without intravenous contrast. Sagittal and coronal images were reconstructed. Individualized dose optimization techniques were used for this CT. COMPARISON: 10/13/2019. FINDINGS: The visualized lung bases are unremarkable. The visualized portions of the heart are within normal limits. Normal liver. There are surgical clips in the gallbladder fossa consistent with a prior cholecystectomy. Normal spleen. Normal pancreas. Normal bilateral adrenal glands. Normal right kidney. Normal left kidney. Normal visualized stomach. Normal small intestine. Normal colon. There are surgical clips in the region of the appendix consistent with a prior appendectomy. Normal abdominal aorta. Normal inferior vena cava. Normal retroperitoneum. Normal urinary bladder. The uterus is anteverted otherwise unremarkable. Evidence of previous bilateral tubal occlusion procedure. No free fluid in the pelvis. Normal abdominal wall. Normal osseous structures. CT/Abdomen/Pelvis without Cont IMPRESSION: No acute process within the abdomen and pelvis. Electronically Signed: Isis Aburto MD at 2:15 EDT , Service support ,
[2020-02-26 01:29] LABS: Bacteria 0 SEEN /hpf (None Seen); Mucous, Urine 0 SEEN /hpf (<or=2+); Squamous Epithelial Cells - UA 0 SEEN /hpf (5-10); White Blood Cells 0 SEEN /hpf (0-5)
[2020-02-26 01:30] LABS: Absolute Lymphocyte Count 1.86 X10^3/uL (0.83-4.51); Absolute Neutrophil Count 4.2 X10^3/uL (2.0-7.7); Basophil# 0.02 X10^3/uL; Basophil% 0.3 % (0-1); Hematocrit 45.6 % (37-47); Hemoglobin 14.9 g/dL (12.0-15.0); Lymphocyte # 1.86 X10^3/ul (4.0); Mean Corp Hgb Conc 32.7 g/dL (32-36); Mean Corpuscular Hgb 31.1 pg (27.0-32.0); Mean Corpuscular Volume 95.2 fL (81-99); Mean Platelet Vol. 10.3 fl (6.2-12.0); Monocyte# 0.35 X10^3/uL; Monocyte% 5.5 % (0-10); NRBC Flagged by Analyzer 0 % (0-5); Neutrophil # 4.16 X10^3/uL (2.7-7.7); Neutrophil % 64.9 % (47-70); Platelet Count 297 K/mm3 (150-450); RBC Distribution Width CV 13.2 % (11.6-14.6); RBC Distribution Width SD 46.3 fl (35.1-43.9); Red Blood Count 4.79 M/mm3 (4.2-5.4); White Blood Count 6.4 K/mm3 (4.4-11.0)
[2020-02-26] MEDS: 0.9% Normal Saline 1,000 ML 250 ML IV (01:31)
[2020-02-26 01:32] LABS: Color, Urine Straw (Yellow); Glucose, Dipstick Normal (Normal); Ketone-Dipstick Negative (Negative); Leukocyte Esterase-Dipstick Negative /ul (Negative); Nitrite-Dipstick Negative (Negative); Occult Blood-Urine 150 /ul (Negative); Protein-Dipstick Negative (Negative); Specific Gravity, Urine 1.005 (1.002-1.030); Urine Bilirubin Dipstick Negative (Negative); Urine Clarity Sl. Cloudy (Clear); Urine Urobilinogen Normal (Normal)
[2020-02-26] MEDS: Ondansetron 4 MG/2 ML Vial IV ×2 (01:32→02:31)
[2020-02-26] MEDS: Morphine 4 MG/ML Syringe IV ×2 (01:33→02:33)
[2020-02-26] MEDS: Ibuprofen 600 MG Tablet PO (01:34)
[2020-02-26 01:40] LABS: Anion Gap 4 (5-15); BUN 7 mg/dL (7-18); BUN/Creat Ratio 8.8 RATIO (10-20); Calcium,Total 9.2 mg/dL (8.5-10.1); Chloride 105 mmol/L (98-107); EST Glomerular Filtration Rate 91 mL/min (>60); Est Glom Filt Rate - Afr Amer 110 mL/min (>60); Estimated Creatinine Clearance 109.41 ml/min; Glucose 92 mg/dL (74-106); Potassium 3.7 mmol/L (3.5-5.1); Sodium Level 138 mmol/L (136-145)
[2020-02-26 01:48] LABS: Internal QC Validated? YES +Cl - CLEAR BKGD; Pregnancy, Serum, hCG Quali. NEGATIVE Negative
[2020-02-26 01:52] LABS: Red Blood Cells-Urine 0-5 SEEN /hpf (0-5)
--- NOTE | 2020-02-26 02:05 | ED.VIS.GEN ---
History of Present Illness Chief Complaint: Flank Pain Informant: Patient Onset: Days Context: Gradual Onset Timing: Waxes and wanes Current Severity: Moderate Maximum Severity: Severe Narrative: Patient presents with right flank pain and hematuria. She is noted waxing and waning right flank pain for the past 2 days. Tonight the pain became much more severe and she had vomiting secondary to pain. She also noted some blood in her urine tonight. She has had a history of kidney stones but is never required surgery. Last menstrual cycle was last week. She has had a tubal ligation. - Past Medical History (1) Kidney stones Status: Chronic (2) Migraines Status: Chronic (3) Seizure disorder Status: Chronic Past Medical History - Allergies and Home Meds Allergies/Adverse Reactions: Allergies ketorolac [From Toradol] Allergy (Verified 02/26/20 01:03) Rash metoclopramide [From Reglan] Allergy (Verified 02/26/20 01:03) Other tramadol [From Ultram] Adverse Reaction (Verified 02/26/20 01:03) Other Primary Care Physician: Willie Bain MD [Primary Care Provider] - Prior records reviewed: Yes Surgical History: appendectomy, cholecystectomy, - - Two prior C section deliveries for preeclampsia and unfavorable cervix. Two laparoscopies for removal of Mirena IUD. ESSURE surgical sterilization. Lives: With Family Smoking Status: Never smoker - Family History Maternal Family History: Reports: No pertinent history Review of Systems General: Denies: Chills, Fever Eyes: Denies: Visual changes - bilaterally ENT: Denies: Bilateral ear pain Cardiovascular: Denies: Chest pain Respiratory: Denies: Dyspnea, Cough Gastrointestinal: Reports: Abdominal pain, Nausea, Vomiting. Denies: Diarrhea Genitourinary: Reports: Hematuria. Denies: Dysuria Musculoskeletal: Reports: Back pain - Right flank Skin: Denies: Rash Neurological: Denies: Headache, Weakness Hematologic: Denies: Easy bruising Allergy: Denies: Uticaria Physical Exam Vital Signs/Narrative: Vital Signs Temp Pulse Resp BP Pulse Ox 02/26/20 01:03 97.5 F L 85 16 126/94 H 100 Inital Vital Signs reviewed: Yes General: Well nourished, Well developed Head: Normocephalic ENT: Moist mucous membranes Neck: Supple Cardiovascular: Regular rate, Regular rhythm Respiratory: No distress, CTA bilaterally Abdomen: Soft, Tender - Right lower quadrant tenderness to palpation.. Negative for: Guarding, Rebound tenderness Back: Negative for: CVA tenderness Skin: Normal color, No rash Neurological: Alert, Oriented x3, Normal Strength, Normal Sensation Psychological: Normal affect Diagnostic/Tx/Re-eval Impressions Abdomen/Pelvis CT 02/26/20 01:20 IMPRESSION: No acute process within the abdomen and pelvis. Electronically Signed: Isis Aburto MD at 2:15 EDT , Service support , 02/26/20 01:20 Abdomen/Pelvis without Cont [CT] Stat Laboratory Results 02/26/20 02/26/20 02/26/20 01:05 01:05 01:05 WBC 6.4 RBC 4.79 Hgb 14.9 Hct 45.6 MCV 95.2 MCH 31.1 MCHC 32.7 RDW Std Deviation 46.3 H RDW Coeff of [place] 13.2 Plt Count 297 MPV 10.3 Immature Gran % (Auto) 0.300 Neut % (Auto) 64.9 Lymph % (Auto) 29.0 [place] % (Auto) 5.5 Eos % (Auto) 0.0 Baso % (Auto) 0.3 Absolute Neuts (auto) 4.2 Absolute Lymphs (auto) 1.86 Nucleated RBC % 0 Sodium 138 Potassium 3.7 Chloride 105 Carbon Dioxide 29.0 Anion Gap 4 L BUN 7 Creatinine 0.80 Estim Creat Clear Calc 109.41 Est GFR (MDRD) Af Amer 110 Est GFR (MDRD) Non-Af 91 BUN/Creatinine Ratio 8.8 L Glucose 92 Calcium 9.2 Serum , Qual NEGATIVE Urine Color Urine Clarity Urine pH Ur Specific [place] Urine Protein Urine Glucose (UA) Urine Ketones Urine Occult Blood Urine Nitrite Urine Bilirubin Urine Urobilinogen Ur Leukocyte Esterase Urine RBC Urine WBC Ur Squamous Epith Cells Urine Bacteria Urine Mucus 02/26/20 01:05 WBC RBC Hgb Hct MCV MCH MCHC RDW Std Deviation RDW Coeff of [place] Plt Count MPV Immature Gran % (Auto) Neut % (Auto) Lymph % (Auto) [place] % (Auto) Eos % (Auto) Baso % (Auto) Absolute Neuts (auto) Absolute Lymphs (auto) Nucleated RBC % Sodium Potassium Chloride Carbon Dioxide Anion Gap BUN Creatinine Estim Creat Clear Calc Est GFR (MDRD) Af Amer Est GFR (MDRD) Non-Af BUN/Creatinine Ratio Glucose Calcium Serum , Qual Urine Color Straw Urine Clarity Sl. Cloudy Urine pH 7.0 Ur Specific [place] 1.005 Urine Protein Negative Urine Glucose (UA) Normal Urine Ketones Negative Urine Occult Blood 150 H Urine Nitrite Negative Urine Bilirubin Negative Urine Urobilinogen Normal Ur Leukocyte Esterase Negative Urine RBC 0-5 SEEN Urine WBC 0 SEEN Ur Squamous Epith Cells 0 SEEN Urine Bacteria 0 SEEN Urine Mucus 0 SEEN - Medical Decision Making Patient was given morphine and Zofran along with IV fluids. She was given ibuprofen as she has an allergy to Toradol. On repeat evaluation patient states her pain was significantly better but is now starting to worsen again. She will be given an additional dose of morphine and Zofran. CT scan was read with no acute abnormalities. That being said in October she had a 1 mm stone in her right kidney. She does have some blood in her urine. I do question as to whether she may have recently passed a kidney stone and is still having spasm and pain. They do not see any large ovarian cysts. No inflammation in the right lower quadrant. Patient will be given prescription for ibuprofen and Zofran along with [place]. She will be referred to Dr. Zuniga, on-call for urology if not improved. ED Disposition - Plan for ED Patient: Disposition: Home or Assisted Living Diagnosis: Right flank pain Instructions: ED Flank Pain Uncertain Cause Prescriptions: Ibuprofen 600 mg PO TID PRN PRN #20 tab PRN Reason: Pain Score 4-10/10 Transmission Status: Pending to [facility] Hydrocodone Bitart/Apap 5-325 [[place] 5MG-325MG] 1 tablet PO Q6H PRN PRN 3 Days #10 tablet PRN Reason: Pain Transmission Status: Received by [facility] Ondansetron [Zofran Odt] 4 mg PO Q8H PRN PRN #10 tab PRN Reason: Nausea Transmission Status: Pending to [facility] Referrals: Tomas Zuniga MD [STAFF PHYSICIAN] - As Needed
[2020-02-26 03:09] VITALS: BP 128/80; PULSE 94; RESP 16; O2SAT 98
== END 2020-02-26 03:16 | disposition home or self-care (01) ==
PROVIDERS: Emergency Provider Emergency Medicine; PCP Internal Medicine
DX: R10.9 Unspecified abdominal pain (principal); R31.9 Hematuria, unspecified; G40.909 Epilepsy, unspecified, not intractable, without status epilepticus; G43.909 Migraine, unspecified, not intractable, without status migrainosus; Z87.442 Personal history of urinary calculi; Z88.5 Allergy status to narcotic agent; Z88.8 Allergy status to other drugs, medicaments and biological substances; Z90.49 Acquired absence of other specified parts of digestive tract
CPT/HCPCS: 74176; 80048; 81001; 84703; 85025; 96361; 96374; 96375; 96376; 99285; J7030; A4216; J2405

== ENCOUNTER 2020-04-02 19:33 | Emergency (ER) | payer MEDICAID, SELFPAY ==
[2020-04-02 19:35] VITALS: BP 145/91; PULSE 125; RESP 19; TEMP 36.2; O2SAT 97; BMI 21.4
[2020-04-02 19:36] VITALS: BP 145/91; PULSE 125; RESP 19; TEMP 36.2; O2SAT 97
[2020-04-02] MEDS: Ondansetron 4 MG/2 ML Vial IV (19:51)
[2020-04-02] MEDS: Morphine 4 MG/ML Syringe IV ×2 (19:52→20:29)
[2020-04-02] MEDS: 0.9% Normal Saline 1,000 ML 250 ML IV (19:53)
[2020-04-02 19:54] LABS: Mucous, Urine 0 SEEN /hpf (<or=2+); White Blood Cells 0 SEEN /hpf (0-5)
[2020-04-02 20:03] LABS: Color, Urine Straw (Yellow); Glucose, Dipstick Normal (Normal); Ketone-Dipstick Negative (Negative); Leukocyte Esterase-Dipstick Negative /ul (Negative); Nitrite-Dipstick Negative (Negative); Occult Blood-Urine 250 /ul (Negative); Protein-Dipstick Negative (Negative); Specific Gravity, Urine 1.005 (1.002-1.030); Urine Bilirubin Dipstick Negative (Negative); Urine Clarity Clear (Clear); Urine Urobilinogen Normal (Normal)
[2020-04-02 20:11] LABS: Bacteria 1+ /hpf (None Seen); Red Blood Cells-Urine 5-10 SEEN /hpf (0-5); Squamous Epithelial Cells - UA 0-5 SEEN /hpf (5-10)
--- NOTE | 2020-04-02 20:11 | ED.DCSUM_ITS ---
- ER Visit Summary Date of Service: 04/02/20 Chief Complaint: Left flank pain History of Present Illness: The patient is a [address] Donnelly. She reports that she has pain in the left flank left lower quadrant that began yesterday. Is sharp pain is 10 of 10 worsening to 10 currently. Is worsened by nothing. Is minimally relieved by position. She is been nausea and vomited to 3 times. No blood in her emesis. Reports that her last bowel was today. No med hematochezia. No dysuria frequency. She does report she is having hematuria. Last menstrual period was 2 weeks ago. Physical Examination: Vitals: Stable. Afebrile. General: Well-nourished and well-developed. Head: Normocephalic atraumatic. Neck: Supple, no lymphadenopathy. No JVD. Nontender. Cardiovascular: Regular rate and rhythm. No murmurs. Respiratory: No respiratory distress. Clear to auscultation bilaterally. Abdominal: Soft, minimal tenderness palpation left upper quadrant, nondistended, normal bowel sounds. No guarding, rebound, or peritoneal signs. Back: Nontender. No CVA tenderness. Extremities: Nontender, no edema. Skin: Normal color, no rash. Neurologic: Alert and oriented ?3. Cranial nerves II through XII are intact. Normal strength and sensation. Psych: Normal affect. Test Results: UA shows occult blood and 5-10 red blood cells. No evidence of infection. test was negative. Emergency Department Course and Treatment: Patient had an IV placed. She was given a liter normal saline. She is given morphine and Zofran IV. She was given ibuprofen p.o. She is resting comfortably. Patient had a CT flank in October that showed 1 mm stone in both kidneys. She had a CT last month that was read as negative. This was when she had right flank pain last month and her urine was consistent with a stone then. Her urine is consistent with a stone again today and her pain is on the left. I suspect that she is passing a small stone that was visualized on the CT in October. I do not think that exposing the radiation of another CT is indicated. I believe this stone would still be small enough that she would pass without difficulty. Treatment Plan: Patient will be discharged with [place], naproxen, and Zofran. Instructed to follow-up with Dr. Zuniga in 1 week if not improving. Return to the emergency department for any worsening symptoms. Disposition: To home in improved and stable condition. Impression: 1. Left ureterolithiasis. This note was generated with [employer] dictation software. It may contain incorrect words, spelling, and punctuation that were not noted in review of the chart prior to signing ED Disposition - Plan for ED Patient: Instructions: ED Renal Stone w Colic Prescriptions: Naproxen [Naprosyn] 500 mg PO BID #14 tablet Hydrocodone Bitart/Apap 5-325 [[place] 5MG-325MG] 1 tablet PO Q4H PRN PRN 2 Days #10 tablet PRN Reason: Pain Ondansetron [Zofran Odt] 4 mg PO Q8H PRN PRN #10 tablet PRN Reason: Nausea Referrals: Willie Bain MD [Primary Care Provider] - Tomas Zuniga MD [STAFF PHYSICIAN] - 1 Week if not improving
[2020-04-02 20:12] LABS: Internal QC Validated? YES +Cl - CLEAR BKGD; Pregnancy, Serum, hCG Quali. NEGATIVE Negative
[2020-04-02 21:17] VITALS: BP 120/57; PULSE 80; RESP 18; O2SAT 98
== END 2020-04-02 21:17 | disposition home or self-care (01) ==
LOC: ED 19:57
PROVIDERS: Emergency Provider Emergency Medicine; PCP Internal Medicine
DX: N20.1 Calculus of ureter (principal)
CPT/HCPCS: 81001; 84703; 96361; 96374; 96375; 96376; 99282; J7030; A4216; J2405